=== PATIENT | male | born 1945 | race Two or more races ===

== ENCOUNTER 2017-06-06 13:45 | Outpatient (RCR) | payer MEDICARE, OTHER ==
--- NOTE | 2017-03-28 12:40 | SPEECH INITIAL EVALUATION ---
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 He was referred for a speech/language evaluation by his physician. He is currently utilizing a low tech AAC device consisting of picture and word combinations to communicate basic wants and needs. LANGUAGE The Quick Assessment of Aphasia was administered with the following results: The patient exhibits perseverative behaviors, especially with counting. His expressive language is severely impaired; receptive language is stronger than his expressive language. Quick Assessment of Aphasia Subtests Raw Scores (1-5 with 5 indicating best performance) Average percent correct for Subtest out of possible 100% Functional Level LISTENING TO LANGUAGE: (6 skills) Follows one step directional commands Follows two step directional commands Points to objects when named Points to body parts when named Points to pictured objects when described -Answers Y/N correctly 4 2 5 3 3 3 66% Ability to perform task is Moderately to Severely Affected GRAPHIC (READING) (4 skills) Matches printed words Matches written words with pictures Reads single words aloud Follows written instruction 5 0 3 1 45% Ability to perform task is Severely affected SPEAKING (6 skills) Describes common objects Names common nouns Completes sentences Imitates words Imitates phrases Gives opposites 0 0 4 5 2 0 37% Ability to perform task is Severely Affected COGNITION The [place] Cognitive Assessment (MoCA) was administered with the following results: -MoCA Total Score (TS): 03/16 = moderate cognitive impairment (MCI) . -Cognitive Domains Demonstrating Deficits: visuospatial, attention, delayed recall, naming -Cognitive Domains Demonstrating Strength: orientation and abstraction SPEECH: Articulation of speech sounds at word, sentence, and conversational level is wnl. VOICE: within functional limits DYSPHAGIA: Patient denies oral, pharyngeal, and esophageal dysphagia symptoms at this time. Spoke with STOPPERER ASSEMBLER working with pt at [facility] who reported pt did not present with dysphagia at their facility. SUMMARY This patient demonstrates moderate to severe expressive language deficits, moderate receptive language deficits, and moderate to severe cognitive deficits. The patients most significant areas of difficulty include all domains of expressive language, and delayed memory. The patient is partially aware of these language deficits and their resulting breakdown of communication. He uses an AAC device consisting of picture and word combinations to communicate basic wants and needs with minimal assistance. These deficits decrease the patients functional communication and cognitive skills for completion of everyday tasks including IADLs. These deficits impact his ability to functionally communicate with friends and family, medical providers and others in the community. RECOMMENDATIONS 1.Speech Therapy: 3x/wk for 12 weeks PROGNOSIS: Good. The patient is motivated and has good family support. PLAN OF CARE Short Term Goals 1.The patient will use phone to functionally communicate with family and emergency services. 2.The patient will use AAC device to participate in reciprocal conversation with familiar communication partners. 3. Pt will match written word with pictures at 9/10 and min assist 4.Pt will repeat short phrases x2 with min assist at 9/10 without speech/ language error 5.Pt will name 10/10 single syllable objects with min assist during confrontation naming tasks. Long-Term Goals 1. The patient will function independently in communicative tasks and IADLs. Thank you for this referral. Please call [phone] Vicenta Livingston M.S., CCC-STOPPERER ASSEMBLER Physician Signature Date MTD
--- NOTE | 2017-04-22 14:46 | SLP PLAN OF CARE ---
SPEECH PATHOLOGY PROGRESS REPORT Physician: Papo Stewart MD Progress Note Date: 04-16-17 Clinician: Vicenta Livingston M.S., CCC-OFFICE CORRESPONDENT Patient: Bryan Thakur : 1945 The patient has been attending ST at [facility] 3x;wk for a total of 10 visits. He She is not driving and is brought to tx by family/friends. Current POC The patient has been working on the following short term goals: 1.The patient will use AAC device to participate in reciprocal conversation with familiar communication partners. -Pt successful using AAC at 95% 2. Pt will match written word with pictures at 9/10 and min assist -Pt matching written word to pictured objects at 58% with min assist for practiced words. 3. Pt will repeat short phrases x2 with min assist at 9/10 without speech/ language error -success at approximately 70%. 4 .Pt will name 10/10 single syllable objects with min assist during confrontation naming tasks. -Perseverative errors reduce success to approx 70% following practice/review. Long-Term Goals 1. The patient will function independently in communicative tasks and IADLs. Goals Met 1.The patient will use phone to functionally communicate with family and emergency services. -the patient uses written instructions provided by ST to assist with calling. He can call his granddaughter and 911 independently. SUMMARY Continue Current POC. The patient is progressing toward ST goals. Increased functional communication is recorded. 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 Perseverative errors occur globally with all modes of communication. Progress is noted including increased frequency and length of none errored phrases. In addition, the patient demonstrates some improvement with self correction of apraxic and perseverative speech. Awareness of errors continues to be high. The patient is very successful using pictured icons for use as functional alternative communication. Therapy will focus on verbal expression, however pt is encouraged to use AAC outside of tx for functional communication RECOMMENDATION Patient would benefit from continued ST 3wj12 to address above POC Thank you for referring this patient to [facility], Speech- Language Pathology. Please call [phone] to contact the OFFICE CORRESPONDENT. Respectfully, Vicenta Livingston M.S., CCC-OFFICE CORRESPONDENT Physician Signature Date MTDD
--- NOTE | 2017-05-20 12:42 | SLP PLAN OF CARE ---
SPEECH PATHOLOGY PROGRESS REPORT Physician: Papo Stewart MD Progress Note Date: 05-13-17 Clinician: Vicenta Livingston M.S., CCC-FILLING SEPARATOR Patient: Bryan Thakur : 1945 The patient attends ST at [facility] 3xwk for a total of 20 visits. Current POC The patient has been working on the following short term goals: 1.The patient will use AAC device to participate in reciprocal conversation with familiar communication partners. -Pt successful using AAC at 95% using picture communication. Tx now focused on initial letter/spelling to communicate indiv. words. 2. Pt will match written word with pictures at 9/10 and min assist -Skill has advanced from 58% at 10th tx to 94% at 20th tx with practiced words. Tx targets have progressed to new non-practiced set with pt accuracy at 60% indep. 3 .Pt will name 10/10 single syllable objects with min assist during confrontation naming tasks. -Skill advanced from 70% following max practice/review at 10th tx to72% initial attempt with new targets tx. . -Perseverative errors reduce success to approx 70% following practice/review. 4. Pt will produced sentences x2 reps following model x2 at 9/10 without speech/language error -Pt currently performing at 75% Long-Term Goals 1. The patient will function independently in communicative tasks and IADLs. GOALS MET 1. Pt will repeat short phrases x2 with min assist at 9/10 without speech/ language error -GOAL MET: Goal targeting skill at higher difficulty level (sentence level) will be added to POC. SUMMARY Continue modified POC as above. The patient is progressing toward ST goals. Increased functional communication is recorded. Apraxic speech with perseveration reduce functional communication however pt has demonstrated significant improvement with targeted skills increaseing overall functional communication in and outside of tx. He is now driving himself to appointments and around town. Education provided as to driving precautions including avoiding peak drive times throughout the day. Pt agrees to avoid driving at these times (8am, 3pm, 5pm, after dark). RECOMMENDATION Patient would benefit from continued ST 3wk12 to address above POC Thank you for referring this patient to [facility], Speech- Language Pathology. Please call [phone] to contact the FILLING SEPARATOR. Respectfully, Vicenta Livingston M.S., CCC-FILLING SEPARATOR Physician Signature Date MTDD
[~2017-06-06 13:45] MED LIST: ASPI-1403 PO; CLIN300C99 PO; HYDR-3503 PO; HYDR12.556; LOSA25TA50; [UNRECOGNIZED DRUG - OTHER]
--- NOTE | 2017-06-19 13:04 | SLP DISCHARGE NOTE ---
SPEECH THERAPY DISCHARGE SUMMARY Discharge from : 06-19-17 Physician: Papo Stewart MD Clinician: Vicenta Livingston M.S., CCC-[employer] COMP[employer]ER Patient: Bryan Thakur : 1945 The patient will be DC'd from at 06-19-16 as he has been admitted to inpatient hospital in [place] d/t [facility] The patient has been attending ST at [facility] 3x/wk at [facility] and funtional communication had improved to approximately 75% to familiar listener using multimodal communication (speech, gesture, written). RECOMMENDATION DC from at this time. The patient is welcome to return to Outpatient Rehab at [facility] in the future if appropriate. Thank you for referring this patient to [facility], Speech- Language Pathology. Please call [phone] to contact the [employer]QU[employer] COMP[employer]ER. Respectfully, Vicenta Livingston M.S., CCC-[employer]QUID FLAVOR COMPOUNDER [facility]
== END 2017-06-06 18:00 | disposition home or self-care (01) ==
LOC: ST 13:45
PROVIDERS: ATTEND Internal Medicine
DX: I63.511 Cerebral infarction due to unspecified occlusion or stenosis of right middle cerebral artery (principal)

== ENCOUNTER 2017-06-16 17:53 | Emergency (ER) | payer MEDICARE, OTHER ==
[~2017-06-16] VITALS: Ht 177.8 cm; Wt 69.4 kg
[2017-06-16 18:21] LABS: PLATELET COUNT, AUTOMATED 157 K/uL (150-450)
--- NOTE | 2017-06-16 18:24 | ER Report ---
History and Physical Time Seen By MD: 18:17 HPI/ROS CHIEF COMPLAINT: Found down, right-sided weakness brought in by EMS as a stroke alert HISTORY OF PRESENT ILLNESS: 72-year-old male who was last seen 24 hours ago was found down at home when family checked on him. He is unknown how long. He's been down. He has complete right-sided flaccidity. Patient likely sustained a stroke. He has a previous history of a stroke or he was flown to [facility] in February of this year. She has blood encrusted teeth. EMS checked a fingerstick glucose of 126. Patient was brought in as a stroke alert and taken immediately to the CAT scanner. He is incontinent of stool and urine. He is undressed and he is covered in numerous bruises from recurrent falls. Stages of the bruises are in various stages. Patient is able to speak. He was undergoing speech therapy noted in the old records. 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 Old records from [facility] will attempt to be obtained. Patient voices no chest pain. He is afebrile. He is mildly hypertensive. Patient unable to tell me what procedures or diagnostic tests were performed at [facility]. Denies any concurrent illness, chest pain, headache or shortness of breath. REVIEW OF SYSTEMS: Constitutional: No fever, no chills. Eyes: No discharge. ENT: No sore throat. Cardiovascular: No chest pain, no palpitations. Respiratory: No cough, no shortness of breath. Gastrointestinal: No abdominal pain, no vomiting. Genitourinary: No hematuria. Musculoskeletal: No back pain. Skin: No rashes. Neurological: No headache. Allergies: Coded Allergies: No Known Drug Allergies (Unverified , 09/05/16) Home Meds Reported Medications Hydrochlorothiazide (HYDROCHLOROTHIAZIDE) 12.5 Mg Capsule 03/12/17 Losartan Potassium (LOSARTAN POTASSIUM) 25 Mg Tablet 03/12/17 Reviewed Nurses Notes: Yes Old Medical Records Reviewed: Yes Hx Smoking: No Exposure to Second Hand Smoke?: No Hx Substance Use Disorder: No Hx Alcohol Use: Yes Constitutional Vital Sign - Last 24 Hours 06/16/17 06/16/17 06/16/17 06/16/17 17:53 18:00 18:05 18:07 Temp 98.2 Pulse ??? 96 Resp 18 B/P (MAP) 164/137 (146) 164/137 159/117 (131) Pulse Ox 98 O2 Delivery Non-Rebreather 06/16/17 06/16/17 06/16/17 06/16/17 18:08 18:23 18:24 18:28 Pulse 98 99 Resp 19 18 B/P (MAP) 148/128 (135) 155/118 (130) Pulse Ox 93 91 06/16/17 06/16/17 06/16/17 06/16/17 18:30 18:38 18:40 18:50 Pulse 102 Resp 27 B/P (MAP) 161/112 (128) 160/121 (134) 165/121 (136) Pulse Ox 92 06/16/17 06/16/17 06/16/17 06/16/17 18:53 19:00 19:08 19:10 Pulse 100 103 Resp 17 14 B/P (MAP) 158/104 (122) 155/112 (126) Pulse Ox 93 92 06/16/17 06/16/17 06/16/17 06/16/17 19:20 19:23 19:30 19:38 Pulse 99 98 Resp 15 14 B/P (MAP) 149/110 (123) 151/107 (122) Pulse Ox 92 91 06/16/17 06/16/17 06/16/17 06/16/17 19:40 19:50 19:55 20:00 Pulse 95 Resp 18 B/P (MAP) 151/107 (122) 153/114 (127) 166/113 (130) Pulse Ox 94 06/16/17 06/16/17 06/16/17 06/16/17 20:10 20:20 20:25 20:30 Pulse 93 96 Resp 13 17 B/P (MAP) 148/120 (129) 170/118 (135) 164/121 (135) Pulse Ox 96 96 06/16/17 06/16/17 06/16/17 06/16/17 20:40 20:50 20:55 21:00 Pulse 99 100 Resp 9 15 B/P (MAP) 175/110 (131) 165/114 (131) 175/121 (139) Pulse Ox 98 90 06/16/17 06/16/17 06/16/17 06/16/17 21:10 21:20 21:25 21:30 Pulse 95 95 Resp 16 15 B/P (MAP) 176/105 (128) 173/102 (125) ???/??? (1665) Pulse Ox 93 95 06/16/17 22:38 O2 Flow Rate 3.0 Physical Exam General Appearance: The patient is alert, has no immediate need for airway protection and no signs of toxicity. Vital signs stable, elevated blood pressure. Pulse ox on nonrebreather 98%. There is no facial droop. Eyes: Pupils equal and round no pallor or injection. ENT, Mouth: Mucous membranes are dry, there is dried crusty blood noted on his teeth. Respiratory: There are no retractions, lungs are clear to auscultation. No wheezing or rails Cardiovascular: Regular rate and rhythm. Gastrointestinal: Abdomen is soft and non tender, no masses, bowel sounds normal. Neurological: Alert and oriented 3, complete right-sided flaccidity. Patient with some dysarthria. He is somewhat hard to understand. He was undergoing speech therapy for aphasia Skin: Warm and dry, no rashes. Musculoskeletal: Neck is supple non tender. No bruits Extremities are nontender, nonswollen and have full range of motion. Diffuse old and new-appearing bruises noted over all body surfaces. DIFFERENTIAL DIAGNOSIS: After history and physical exam differential diagnosis was considered for fall in the elderly including but not limited to intracranial injury, long bone and pelvic bone fracture, spinal injury, and intrathoracic injury. Additionally,weakness including but not limited to electrolyte abnormality, depression, anxiety, CVA, spinal cord abnormality, and infectious causes. Medical Decision Making Data Points Result Diagram: 06/16/17 1812 06/16/17 1812 Laboratory Hematology Test 06/16/17 18:12 06/16/17 18:22 Red Blood Count 5.51 M/uL (4.00-5.60) Mean Corpuscular Volume 93.3 fL (80.0-96.0) Mean Corpuscular Hemoglobin 32.1 pg (26.0-33.0) Mean Corpuscular Hemoglobin Concent 34.4 g/dL (32.0-36.0) Red Cell Distribution Width 13.9 % (11.5-14.5) Mean Platelet Volume 8.3 fL (7.2-11.1) Neutrophils (%) (Auto) 87.4 % (39.4-72.5) Lymphocytes (%) (Auto) 4.6 % (17.6-49.6) Monocytes (%) (Auto) 7.8 % (4.1-12.4) Eosinophils (%) (Auto) 0.0 % (0.4-6.7) Basophils (%) (Auto) 0.2 % (0.3-1.4) Nucleated RBC Relative Count (auto) 0.0 /100WBC Neutrophils # (Auto) 13.4 K/uL (2.0-7.4) Lymphocytes # (Auto) 0.7 K/uL (1.3-3.6) Monocytes # (Auto) 1.2 K/uL (0.3-1.0) Eosinophils # (Auto) 0.0 K/uL (0.0-0.5) Basophils # (Auto) 0.0 K/uL (0.0-0.1) Nucleated RBC Absolute Count (auto) 0.00 K/uL Prothrombin Time 14.4 seconds (12.0-14.4) Prothromb Time International Ratio 1.12 Activated Partial Thromboplast Time 27 seconds (23-35) Sodium Level 140 mmol/L (137-145) Potassium Level 4.3 mmol/L (3.5-5.0) Chloride Level 102 mmol/L (98-107) Carbon Dioxide Level 26 mmol/L (22-30) Blood Urea Nitrogen 12 mg/dl (9-21) Creatinine 0.70 mg/dl (0.66-1.25) Glomerular Filtration Rate Calc > 60.0 Random Glucose 126 mg/dl (75-110) Lactate 3.6 mmol/L (0.7-2.1) Calcium Level 9.3 mg/dl (8.4-10.2) Total Bilirubin 1.8 mg/dl (0.2-1.3) Aspartate Amino Transf (AST/SGOT) 81 U/L (0-35) Alanine Aminotransferase (ALT/SGPT) 46 U/L (0-56) Alkaline Phosphatase 90 U/L (0-126) Total Creatine Kinase 4042 U/L (55-170) Troponin I < 0.012 ng/ml Total Protein 7.6 gm/dl (6.3-8.2) Albumin 4.5 g/dl (3.5-5.0) Urine Color Yellow Urine Clarity Clear Urine pH 5.0 pH (4.8-9.5) Urine Specific [place] 1.019 Urine Protein 30 mg/dL (NEGATIVE) Urine Glucose (UA) 50 mg/dL (NEGATIVE) Urine Ketones 20 mg/dL (NEGATIVE) Urine Blood Large (NEGATIVE) Urine Nitrite Negative (NEGATIVE) Urine Bilirubin Negative (NEGATIVE) Urine Urobilinogen Negative mg/dL (0.2-1.9) Urine Leukocyte Esterase Negative (NEGATIVE) Urine RBC 1 /HPF (0-2/HPF) Urine WBC 1 /HPF (0-5/HPF) Urine Squamous Epithelial Cells None /LPF (NONE-FEW) Urine Bacteria Negative /HPF (NONE-FEW) Urine Mucus None /HPF (NONE-FEW) Chemistry Test 06/16/17 18:12 06/16/17 18:22 White Blood Count 15.4 k/uL (4.5-11.0) Red Blood Count 5.51 M/uL (4.00-5.60) Hemoglobin 17.7 g/dL (14.0-18.0) Hematocrit 51.4 % (42.0-52.0) Mean Corpuscular Volume 93.3 fL (80.0-96.0) Mean Corpuscular Hemoglobin 32.1 pg (26.0-33.0) Mean Corpuscular Hemoglobin Concent 34.4 g/dL (32.0-36.0) Red Cell Distribution Width 13.9 % (11.5-14.5) Platelet Count 157 K/uL (150-450) Mean Platelet Volume 8.3 fL (7.2-11.1) Neutrophils (%) (Auto) 87.4 % (39.4-72.5) Lymphocytes (%) (Auto) 4.6 % (17.6-49.6) Monocytes (%) (Auto) 7.8 % (4.1-12.4) Eosinophils (%) (Auto) 0.0 % (0.4-6.7) Basophils (%) (Auto) 0.2 % (0.3-1.4) Nucleated RBC Relative Count (auto) 0.0 /100WBC Neutrophils # (Auto) 13.4 K/uL (2.0-7.4) Lymphocytes # (Auto) 0.7 K/uL (1.3-3.6) Monocytes # (Auto) 1.2 K/uL (0.3-1.0) Eosinophils # (Auto) 0.0 K/uL (0.0-0.5) Basophils # (Auto) 0.0 K/uL (0.0-0.1) Nucleated RBC Absolute Count (auto) 0.00 K/uL Prothrombin Time 14.4 seconds (12.0-14.4) Prothromb Time International Ratio 1.12 Activated Partial Thromboplast Time 27 seconds (23-35) Glomerular Filtration Rate Calc > 60.0 Lactate 3.6 mmol/L (0.7-2.1) Calcium Level 9.3 mg/dl (8.4-10.2) Total Bilirubin 1.8 mg/dl (0.2-1.3) Aspartate Amino Transf (AST/SGOT) 81 U/L (0-35) Alanine Aminotransferase (ALT/SGPT) 46 U/L (0-56) Alkaline Phosphatase 90 U/L (0-126) Total Creatine Kinase 4042 U/L (55-170) Troponin I < 0.012 ng/ml Total Protein 7.6 gm/dl (6.3-8.2) Albumin 4.5 g/dl (3.5-5.0) Urine Color Yellow Urine Clarity Clear Urine pH 5.0 pH (4.8-9.5) Urine Specific [place] 1.019 Urine Protein 30 mg/dL (NEGATIVE) Urine Glucose (UA) 50 mg/dL (NEGATIVE) Urine Ketones 20 mg/dL (NEGATIVE) Urine Blood Large (NEGATIVE) Urine Nitrite Negative (NEGATIVE) Urine Bilirubin Negative (NEGATIVE) Urine Urobilinogen Negative mg/dL (0.2-1.9) Urine Leukocyte Esterase Negative (NEGATIVE) Urine RBC 1 /HPF (0-2/HPF) Urine WBC 1 /HPF (0-5/HPF) Urine Squamous Epithelial Cells None /LPF (NONE-FEW) Urine Bacteria Negative /HPF (NONE-FEW) Urine Mucus None /HPF (NONE-FEW) Coagulation Test 06/16/17 18:12 Prothrombin Time 14.4 seconds Prothromb Time International Ratio 1.12 Activated Partial Thromboplast Time 27 seconds Urinalysis Test 06/16/17 18:22 Urine Color Yellow Urine Clarity Clear Urine pH 5.0 pH (4.8-9.5) Urine Specific [place] 1.019 Urine Protein 30 mg/dL (NEGATIVE) Urine Glucose (UA) 50 mg/dL (NEGATIVE) Urine Ketones 20 mg/dL (NEGATIVE) Urine Blood Large (NEGATIVE) Urine Nitrite Negative (NEGATIVE) Urine Bilirubin Negative (NEGATIVE) Urine Urobilinogen Negative mg/dL (0.2-1.9) Urine Leukocyte Esterase Negative (NEGATIVE) Urine RBC 1 /HPF (0-2/HPF) Urine WBC 1 /HPF (0-5/HPF) Urine Squamous Epithelial Cells None /LPF (NONE-FEW) Urine Bacteria Negative /HPF (NONE-FEW) Urine Mucus None /HPF (NONE-FEW) Microbiology Microbiology Date/Time Source Procedure Growth Status 06/16/17 19:58 Blood Peripheral Draw Blood Culture - Preliminary NO GROWTH AFTER 1 DAY, REINCUBATED Resulted 06/16/17 18:12 Blood Peripheral Draw Blood Culture - Preliminary NO GROWTH AFTER 1 DAY, REINCUBATED Resulted EKG/Imaging EKG Interpretation 12 lead EKG: Rhythm: Sinus tachycardia [place]: Left axis deviation QRS: normal ST segments: Fused nonspecific ST and T-wave changes,, comparison to previous EKG dated 03/12/17. There are new biphasic inverted T waves waves in the anterior leads of questionable significance Imaging X-ray: Single view portable chest x-ray was obtained. I viewed the images myself on the PACS system. My interpretation of the images is: []. [The radiologist interpretation had no clinically significant variation from this interpretation]. Results: CT scan of the head was obtained. The results of the study are EXAMINATION: CT head without IV contrast HISTORY: Right-sided weakness. TECHNIQUE: Axial CT images of the head were obtained from the vertex to the skull base without IV contrast, with coronal and sagittal 2D reconstructed images. One of the following dose optimization techniques was utilized in the performance of this exam: Automated exposure control; adjustment of the mA and/ or kV according to the patient's size; or use of an iterative reconstruction technique. Specific details can be referenced in the facility's radiology CT exam operational policy. COMPARISON: 03/12/2017. FINDINGS: There is a new moderate-sized region of low attenuation change with loss of bonilla -white differentiation centered along the lateral left frontal lobe, compatible with evolving subacute infarct in the MCA territory. This region measures approximately 5.9 x 3.3 x 3.8 cm (AP x Trans x CC). No evidence of intracranial hemorrhage or mass effect. No other loss of bonilla-white differentiation. No midline shift or extra-axial fluid collections. The basal cisterns are patent. Ventricles are normal in caliber. Mild generalized parenchymal atrophy, with additional patchy low attenuation in the deep white matter, suggesting chronic small vessel ischemic change. Stable small old infarct in the left basal ganglia. Intracranial vascular calcifications with dolichoectasia of the intracranial vasculature. There is fusiform enlargement of the supraclinoid left ICA measuring up to 7 mm. Stable large and partially calcified aneurysm at the left MCA trifurcation, measuring 1.9 x 1.9 cm. The calvarium is intact. The partially visualized paranasal sinuses and mastoid air cells are unopacified. IMPRESSION: 1. Moderate sized evolving subacute left MCA territory infarct centered along the lateral left frontal lobe. No intracranial hemorrhage or mass effect. 3. Dolichoectasia of the intracranial vasculature with stable 1.9 cm peripherally calcified aneurysm at the left MCA trifurcation. 4. No other new intracranial findings. The study was read by the radiologist. I viewed the images myself on the PACS system. 06/16/2017 7:21:[address] Chuy Paiz, radiologist on CT scan noted verbally large left MCA stroke ED Course/Re-evaluation Clinical Indication for ER IV: Hydration, IV Access ED Course Patient was presented to the ER by EMS as a stroke alert. A call was placed for consideration of emergency transport by air ambulance to a stroke center. Unfortunately, due to the weather no helicopters were flying. The fixed wing from [facility] is diverted on another emergency. A cursory exam was performed. Patient with right-sided weakness. The patient was taken directly to the CAT scanner. He had stable vital signs and stable, pulse ox. He return to the emergency department after CAT scan and a stroke assessment was performed. Patient had gross geno-paresis to his right side. Blood pressure was mildly elevated. Diagnostic studies were ordered. 2 peripheral IVs were established. Patient reports he was down since 3 AM. Family checked on him late this evening after not hearing from him all day. EMS brought him in with right- sided hemiparesis. He has a large left MCA stroke noted on CT scan. Patient's diagnostic show these show an elevated CPK of almost 4000. Likely mild rhabdomyolysis from being down for over 12 hours. Patient was soiled with stool and urine. He was cleaned up by nursing staff here. 06/16/2017 8:31:27 pm case was discussed with hospitalist, Dr. Reeves who accepts the patient for transfer to [facility]. Decision to Disposition Date: Jun 16, 2017 Decision to Disposition Time: 19:50 Critical Care Time I spent a total of 90 minutes of critical care time in obtaining history, performing a physical exam, bedside monitoring of interventions, collecting and interpreting tests and discussion with consultants but not including time spent performing procedures. Depart Departure Latest Vital Signs Vital Signs Date Time Temp Pulse Resp B/P (MAP) Pulse Ox O2 Delivery O2 Flow Rate FiO2 06/16/17 22:38 3.0 06/16/17 21:30 ???/??? (1665) 06/16/17 21:25 95 15 95 06/16/17 18:05 98.2 Non-Rebreather Impression: Primary Impression: Left sided cerebral hemisphere cerebrovascular accident (CVA) Additional Impressions: Rhabdomyolysis Hypertension Condition: Improved Disposition: XFER TO [facility] Problem Qualifiers Additional Impressions: Rhabdomyolysis Rhabdomyolysis type: non-traumatic Qualified Codes: M62.82 - Rhabdomyolysis Hypertension Hypertension type: essential hypertension Qualified Codes: I10 - Essential ( primary) hypertension TRISTIN TREJO DO Jun 16, 2017 18:24
[2017-06-16 18:31] LABS: INR 1.12
--- NOTE | 2017-06-16 18:44 | EKG ---
FACILITY: [facility] [place] PATIENT NAME: KOBE SANDERS : [id number] MR: [id number] V: [id number] EXAM DATE: ORDERING PHYSICIAN: TRISTIN TREJO TECHNOLOGIST: EMMANUEL Test Reason : STROKE Blood Pressure : / mmHG Vent. Rate : 108 BPM Atrial Rate : 108 BPM P-R Int : 180 ms QRS Dur : 080 ms QT Int : 328 ms P-R-T Axes : 071 -72 066 degrees QTc Int : 439 ms Sinus tachycardia Left axis deviation Nonspecific ST and T wave abnormality Abnormal ECG When compared with ECG of 12-MAR-2017 09:17, Vent. rate has increased BY 39 BPM Confirmed by SUNDAY QUIROGA ([id number]) on 06/17/2017 12:35:01 AM Referred By: MAYA Confirmed By:SUNDAY QUIROGA
--- NOTE | 2017-06-16 19:27 | RADIOLOGY IMAGING REPORT ---
FACILITY: [facility] [place] PATIENT NAME: Bryan Thakur : 1945 MR: [id number] V: [id number] EXAM DATE: ORDERING PHYSICIAN: TRISTIN TREJO TECHNOLOGIST: Location: [facility] Patient: Bryan Thakur : 1945 Visit/Account:[id number] Date of Sevice: 06/16/2017 EXAMINATION: CT head without IV contrast HISTORY: Right-sided weakness. TECHNIQUE: Axial CT images of the head were obtained from the vertex to the skull base without IV c ontrast, with coronal and sagittal 2D reconstructed images. One of the following dose optimization techniques was utilized in the performance of this exam: Autom ated exposure control; adjustment of the mA and/or kV according to the patient's size; or use of an i terative reconstruction technique. Specific details can be referenced in the facility's radiology C T exam operational policy. COMPARISON: 03/12/2017. FINDINGS: There is a new moderate-sized region of low attenuation change with loss of bonilla-white differentiatio n centered along the lateral left frontal lobe, compatible with evolving subacute infarct in the MCA territory. This region measures approximately 5.9 x 3.3 x 3.8 cm (AP x Trans x CC). No evidence of in tracranial hemorrhage or mass effect. No other loss of bonilla-white differentiation. No midline shift o r extra-axial fluid collections. The basal cisterns are patent. Ventricles are normal in caliber. Mild generalized parenchymal atrophy, with additional patchy low attenuation in the deep white matter , suggesting chronic small vessel ischemic change. Stable small old infarct in the left basal ganglia . Intracranial vascular calcifications with dolichoectasia of the intracranial vasculature. There is fu siform enlargement of the supraclinoid left ICA measuring up to 7 mm. Stable large and partially calc ified aneurysm at the left MCA trifurcation, measuring 1.9 x 1.9 cm. The calvarium is intact. The partially visualized paranasal sinuses and mastoid air cells are unopaci fied. IMPRESSION: 1. Moderate sized evolving subacute left MCA territory infarct centered along the lateral left fronta l lobe. No intracranial hemorrhage or mass effect. 3. Dolichoectasia of the intracranial vasculature with stable 1.9 cm peripherally calcified aneurysm at the left MCA trifurcation. 4. No other new intracranial findings. Findings were discussed with TRISTIN TREJO at 06/16/2017 7:23 PM. Report Dictated By: Chuy Paiz MD at 06/16/2017 7:05 PM Report E-Signed By: Chuy Paiz MD at 06/16/2017 7:23 PM WSN:[id number]
--- NOTE | 2017-06-16 19:28 | RADIOLOGY IMAGING REPORT ---
FACILITY: [facility] PATIENT NAME: Bryan Thakur : 1945 MR: [id number] V: [id number] EXAM DATE: ORDERING PHYSICIAN: TRISTIN TREJO TECHNOLOGIST: Location: [facility] [place] Patient: Bryan Thakur : 1945 Visit/Account:[id number] Date of Sevice: 06/16/2017 EXAMINATION: Portable AP Chest HISTORY: Right-sided weakness. COMPARISON: None. FINDINGS: Mild chronic appearing interstitial changes bilaterally, with several strands of scarring or linear a telectasis in the lower lungs. No focal consolidation or pleural effusion. No pneumothorax. Normal heart size and pulmonary vascularity. Calcified and tortuous thoracic aorta. No acute osseous findings in the chest. IMPRESSION: No evidence of acute cardiopulmonary disease. Report Dictated By: Chuy Paiz MD at 06/16/2017 7:23 PM Report E-Signed By: Chuy Paiz MD at 06/16/2017 7:24 PM WSN:[id number]
[2017-06-16] MEDS ORDERED: LR(*) 1000 ML BAG 1,000 ML IV PRN (19:35)
== END 2017-06-16 21:53 ==
LOC: ER 17:54
DX: I63.9 Cerebral infarction, unspecified (principal); M62.82 Rhabdomyolysis; I10 Essential (primary) hypertension
CPT/HCPCS: 70450; 71010; 81001; 82040; 82247; 82310; 82374; 82435; 82550; 82565; 82947; 83605; 83874; 84075; 84132; 84155; 84295; 84450; 84460; 84484; 84520; 85025; 85610; 85730; 87040; 93005; 99285; 99291; 99292

== ENCOUNTER → 2017-06-16 | Outpatient (CLI) | payer MEDICARE, OTHER | LOC: AMB 17:27 | PROVIDERS: ATTEND Nurse Practitioner | DX: R53.1 Weakness (principal); R29.810 Facial weakness; Z86.73 Personal history of transient ischemic attack (TIA), and cerebral infarction without residual deficits | CPT/HCPCS: A0425; A0427 ==

== ENCOUNTER → 2017-06-16 | Outpatient (CLI) | payer MEDICARE, OTHER | LOC: AMB 21:21 | PROVIDERS: ATTEND Nurse Practitioner | DX: I63.9 Cerebral infarction, unspecified (principal); I10 Essential (primary) hypertension | CPT/HCPCS: A0425; A0426 ==

== ENCOUNTER 2017-10-20 14:53 | Emergency (ER) | payer MEDICARE, OTHER ==
--- NOTE | 2017-10-20 14:57 | ER Report ---
History and Physical Time Seen By MD: 14:57 HPI/ROS CHIEF COMPLAINT: I NEED OXYGEN HISTORY OF PRESENT ILLNESS: Pt states that he has copd and is on 4 liters of oxygen with exerton an 2 liters at rest chronically. Pt had a stroke and was admitted to [facility] for rehab. when in rehab his home oxygen was stopped. Pt now discharged to home but without his oxygen. Pt came to ed looking to restart his oxygen. No cp. no new symptoms. Pt states his initial oxygen was with [facility] but was changed by the [place] to [facility] oxygen. REVIEW OF SYSTEMS: GEN: no fevers Respiratory: No cough, no dyspnea. Cardiovascular: No chest pain, no palpitations. Gastrointestinal: No vomiting, no abdominal pain. Musculoskeletal: No back pain. Allergies: Coded Allergies: No Known Drug Allergies (Unverified , 09/05/16) Home Meds Reported Medications Hydrochlorothiazide (HYDROCHLOROTHIAZIDE) 12.5 Mg Capsule 03/12/17 Losartan Potassium (LOSARTAN POTASSIUM) 25 Mg Tablet 03/12/17 Past Medical/Surgical History pmhx: copd, cva Pshx: non contrib Reviewed Nurses Notes: Yes Old Medical Records Reviewed: Yes Hx Smoking: No Smoking Status: Former Smoker Exposure to Second Hand Smoke?: No Hx Substance Use Disorder: No Hx Alcohol Use: Yes Constitutional Vital Sign - Last 24 Hours 10/20/17 10/20/17 10/20/17 10/20/17 14:57 14:57 14:58 15:00 Temp 97.5 Pulse 92 Resp 16 B/P (MAP) 139/106 139/106 (117) 120/109 (113) Pulse Ox 86 O2 Delivery Room Air O2 Flow Rate 2.0 10/20/17 10/20/17 10/20/17 10/20/17 15:08 15:15 15:23 15:30 Pulse 85 84 B/P (MAP) 117/95 (102) 131/107 (115) Pulse Ox 93 92 10/20/17 15:31 Pulse 82 Pulse Ox 93 Physical Exam General Appearance: The patient is alert, has no immediate need for airway protection and no signs of toxicity. Eyes: Pupils equal and round no pallor or injection, EOMI ENT: no pharyngeal erythema or exudates, Mucous membranes are moist Respiratory: There are no retractions, lungs are clear to auscultation. Cardiovascular: Regular rate and rhythm. pulses are equal and symmetrical Gastrointestinal: Abdomen is soft and non tender, no masses, bowel sounds normal, no guarding, no rigidity or rebound Neurological: Cranial nerves II-XII grossly intact, with r sided weakness Skin: Warm and dry, no rashes. Musculoskeletal: Neck is supple non tender, no vertebral tenderness Extremities are nontender, non swollen Pt with chronic r sided weakness DIFFERENTIAL DIAGNOSIS: After history and physical exam differential diagnosis was considered for chronic copd Medical Decision Making ED Course/Re-evaluation ED Course filled paperwork out for home oxygen. PTs pulse ox on room air for me at rest was 84%. 10/20/2017 3:50:23 pm Home and portable oxygen arrived for patient. will d/c Decision to Disposition Date: October 20, 2017 Decision to Disposition Time: 15:50 Depart Departure Latest Vital Signs Vital Signs Date Time Temp Pulse Resp B/P (MAP) Pulse Ox O2 Delivery O2 Flow Rate FiO2 10/20/17 15:31 82 93 10/20/17 15:30 131/107 (115) 10/20/17 14:57 2.0 10/20/17 14:57 97.5 16 Room Air Impression: Primary Impression: COPD (chronic obstructive pulmonary disease) Additional Impression: Oxygen dependent Condition: Improved Disposition: HOME OR SELF-CARE Departure Forms: ER Transition Record, Home Oxygen, Nebulizer RX, Home Oxygen Company Chosen by Patient: [facility] Home Oxygen Durable Medical Equipment-Oxygen: Oxygen Concentrator, Portable Oxygen Gas Reason for Use/Diagnosis: COPD Start Date of the Order: October 20, 2017 Dosage or Concentration (if applicable) - LPM: 4 Route of Administration (if applicable): Nasal Cannula Frequency of Use: Continuous Duration Home O2 Required: 99 Duration Units: Days Room Air Oxygen Saturation: 84 ER Prescribing Physician's Name: Yaneli Dumont NPI Numbers for Local ER MDs: Berna [id number] Medications Reconciliation, Patient Portal Information Patient Instructions: COPD (Chronic Obstructive Pulmonary Disease) (ED) Additional Instructions: Continue with your current medication and oxygen regimen. Follow up with your family doctor Problem Qualifiers Primary Impression: COPD (chronic obstructive pulmonary disease) COPD type: unspecified COPD Qualified Codes: J44.9 - Chronic obstructive pulmonary disease, unspecified YANELI DUMONT DO October 20, 2017 14:57
[2017-10-20 15:45] VITALS: BP 134/99
== END 2017-10-20 15:53 | disposition home or self-care (01) ==
LOC: ER 15:36
DX: J44.9 Chronic obstructive pulmonary disease, unspecified (principal); Z99.81 Dependence on supplemental oxygen
CPT/HCPCS: 99284

== ENCOUNTER 2018-03-06 06:00 | Outpatient (RCR) | payer MEDICARE, OTHER ==
[~2018-03-06 06:00] MED LIST changes: -LOSA25TA50; +LOSA25TA52
--- NOTE | 2018-03-06 15:24 | RADIOLOGY IMAGING REPORT ---
FACILITY: [facility] PATIENT NAME: Bryan Thakur : 1945 MR: [id number] V: [id number] EXAM DATE: ORDERING PHYSICIAN: SUNDAY JAIN TECHNOLOGIST: Location: [facility] Patient: Bryan Thakur : 1945 Visit/Account:[id number] Date of Sevice: 03/06/2018 Examination: MR brain without contrast History: Cerebral infarction Comparison: Head CT 06/16/2017, CT angiogram March 12, 2017 Technique: Multiplane MR imaging was performed through the brain without contrast. Findings: Diffusion: None Ventricles: Normal Midline shift: None Extraaxial fluid: None. 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 Parenchyma: Punctate foci of hemosiderin staining in the bilateral frontal vertex. Additional hemosi olya staining in the right thalamus and right temporal lobe. 2.6 cm ovoid high signal in the left temporal lobe is seen posterior to left MCA region aneurysm. Th ere is low signal on gradient acquisition and hyperintense T1 signal in this finding, sagittal T1 ildefonso ge 16. Mild vasogenic edema versus confluent white matter encephalomalacia in the anterior left temporal lob e adjacent to the MCA aneurysm. Left frontal lobe and basal ganglia unchanged encephalomalacia. Mild to moderate unchanged patchy periventricular white matter high signal and a few small white armen er high signal foci. 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 Orbits and paranasal sinuses: Mild right maxillary sinus mucosal thickening. Impression: 1. 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 2. 2.6 cm parenchymal high signal in the left temporal lobe posterior to the aneurysm exhibits hyper intense T1 signal and low signal on gradient acquisition concerning for a subacute parenchymal hemato ma potentially related to the adjacent MCA aneurysm. This could alternatively represent the residua of prior hemorrhagic infarct. Recommend noncontrast head CT for further characterization. 3. Mild to moderate chronic small vessel ischemic change. 4. Left MCA distribution unchanged encephalomalacia. Report Dictated By: Tyrone Vyas MD at 03/06/2018 3:09 PM Report E-Signed By: Tyrone Vyas MD at 03/06/2018 3:20 PM WSN:[id number]
[2018-03-07] MEDS ORDERED: IOPAMIDOL 76% 75 ML INFUS BTL 75 ML ONE (12:38)
--- NOTE | 2018-03-07 16:02 | RADIOLOGY IMAGING REPORT ---
FACILITY: [facility] PATIENT NAME: Bryan Thakur : 1945 MR: [id number] V: [id number] EXAM DATE: ORDERING PHYSICIAN: SUNDAY JAIN TECHNOLOGIST: Location: [facility] Patient: Bryan Thakur : 1945 Visit/Account:[id number] Date of Sevice: 03/07/2018 EXAMINATION: CT Head without intravenous contrast CTA Neck with intravenous contrast CTA Head with intravenous contrast HISTORY: Aneurysm. TECHNIQUE: Axial noncontrast images are taken from the skull base through the vertex. Sagittal and coronal reformatted images are also submitted. Overlapping thin sections were obtained during a kelin us of IV contrast from the aortic arch through the vertex. Reconstruction of the source data set incl udes multiplanar 2D in the sagittal and coronal planes, and 3D coronal thin slab MIP series. Represen tative images have been stored on PACS. Stenosis of the internal carotid arteries are calculated usi ng NASCET criteria. One of the following dose optimization techniques was utilized in the performance of this exam: Autom ated exposure control; adjustment of the mA and/or kV according to the patient's size; or use of an i terative reconstruction technique. Specific details can be referenced in the facility's radiology C T exam operational policy. CONTRAST: 75 mL of IV Isovue-370 COMPARISON: Brain MRI dated 03/06/2018. FINDINGS: CT HEAD: Brain volume: Mild generalized volume loss. Ventricles: Negative. Acute ischemic changes: None. Hemorrhage: 2.3 x 1.8 x 1.1 cm subcutaneous hematoma in the left temporal lobe immediately posterior to the left MCA aneurysm. The aneurysm is slightly increased in size measuring 3.0 x 2.1 x 1.9 cm, previously 2.7 x 2.1 x 1.9 cm. No subarachnoid hemorrhage. Masses / edema: Mild edema surrounding the left temporal lobe hematoma. Valle-white: Encephalomalacia/gliosis in the left lateral frontal lobe, insula, and bilateral basal ga nglia. White matter: Stable mild chronic microvascular ischemic changes. Vessels: Dolichoectasia of the intracranial arteries. Left MCA bifurcation aneurysm. Scattered mati cified plaque. Normal density in the dural venous sinuses. Extra-axial: Negative. Calvarium / scalp: Negative. Skull base / visualized face: Negative. Visualized sinuses / orbits: Leftward nasal septal deviation. Moderate mucosal thickening in the ri ght maxillary sinus with periapical lucency surrounding the root of the posterior right maxillary mol ar and mild periapical lucency surrounding the right premolar roots. CTA: Aortic arch and great vessels: Negative. Right CCA / ICA: Negative. Left CCA / ICA: Mild calcified plaque at the origin of the internal carotid artery with no signific ant stenosis. Vertebro-basilar: The right vertebral artery is dominant. Otherwise negative. [place] of Yates: Hypoplastic right A1 segment. RUBY circulation: Negative. MCA circulation: Slightly increased size of the left MCA bifurcation aneurysm measuring 3.0 x 2.1 x 1.9 cm, previously 2.7 x 2.1 x 1.9 cm. Small amount of subacute hemorrhage in the adjacent left ant erior temporal lobe. The aneurysm does not fill with contrast, however this may be secondary to slow flow. RETAIL BANKING MANAGER circulation: Negative. Additional non-angiographic findings: Multilevel degenerative disc disease in the cervical spine. Emphysema in the upper lungs. IMPRESSION: 1. Slightly increased size of the left MCA bifurcation aneurysm with subacute hemorrhage in the genesis cent left anterior temporal lobe. Mild edema in the left anterior temporal lobe. No subarachnoid he morrhage. The aneurysm does not fill with contrast, however this may be secondary to slow flow. 2. Otherwise no acute intracranial abnormality. 3. Moderate mucosal thickening in the right maxillary sinus with periapical lucency surrounding the root of the posterior right maxillary molar and mild periapical lucency surrounding the right premola r roots. 4. Multilevel degenerative disc disease in the cervical spine. 5. Emphysema in the upper lungs. Results were called to SUNDAY JAIN at 03/07/2018 2:22 PM.Report Dictated By: Theodore Du MD at 03/07/2018 1:52 PM Report E-Signed By: Theodore Du MD at 03/07/2018 2:24 PM WSN:[id number]
--- NOTE | 2018-03-07 16:05 | RADIOLOGY IMAGING REPORT ---
FACILITY: [facility] PATIENT NAME: Bryan Thakur : 1945 MR: [id number] V: [id number] EXAM DATE: ORDERING PHYSICIAN: SUNDAY JAIN TECHNOLOGIST: Location: [facility] Patient: Bryan Thakur : 1945 Visit/Account:[id number] Date of Sevice: 03/07/2018 EXAMINATION: CT Head without intravenous contrast CTA Neck with intravenous contrast CTA Head with intravenous contrast HISTORY: Aneurysm. TECHNIQUE: Axial noncontrast images are taken from the skull base through the vertex. Sagittal and coronal reformatted images are also submitted. Overlapping thin sections were obtained during a kelin us of IV contrast from the aortic arch through the vertex. Reconstruction of the source data set incl udes multiplanar 2D in the sagittal and coronal planes, and 3D coronal thin slab MIP series. Represen tative images have been stored on PACS. Stenosis of the internal carotid arteries are calculated usi ng NASCET criteria. One of the following dose optimization techniques was utilized in the performance of this exam: Autom ated exposure control; adjustment of the mA and/or kV according to the patient's size; or use of an i terative reconstruction technique. Specific details can be referenced in the facility's radiology C T exam operational policy. CONTRAST: 75 mL of IV Isovue-370 COMPARISON: Brain MRI dated 03/06/2018. FINDINGS: CT HEAD: Brain volume: Mild generalized volume loss. Ventricles: Negative. Acute ischemic changes: None. Hemorrhage: 2.3 x 1.8 x 1.1 cm subcutaneous hematoma in the left temporal lobe immediately posterior to the left MCA aneurysm. The aneurysm is slightly increased in size measuring 3.0 x 2.1 x 1.9 cm, previously 2.7 x 2.1 x 1.9 cm. No subarachnoid hemorrhage. Masses / edema: Mild edema surrounding the left temporal lobe hematoma. Valle-white: Encephalomalacia/gliosis in the left lateral frontal lobe, insula, and bilateral basal ga nglia. White matter: Stable mild chronic microvascular ischemic changes. Vessels: Dolichoectasia of the intracranial arteries. Left MCA bifurcation aneurysm. Scattered mati cified plaque. Normal density in the dural venous sinuses. Extra-axial: Negative. Calvarium / scalp: Negative. Skull base / visualized face: Negative. Visualized sinuses / orbits: Leftward nasal septal deviation. Moderate mucosal thickening in the ri ght maxillary sinus with periapical lucency surrounding the root of the posterior right maxillary mol ar and mild periapical lucency surrounding the right premolar roots. CTA: Aortic arch and great vessels: Negative. Right CCA / ICA: Negative. Left CCA / ICA: Mild calcified plaque at the origin of the internal carotid artery with no signific ant stenosis. Vertebro-basilar: The right vertebral artery is dominant. Otherwise negative. [place] of Yates: Hypoplastic right A1 segment. RUBY circulation: Negative. MCA circulation: Slightly increased size of the left MCA bifurcation aneurysm measuring 3.0 x 2.1 x 1.9 cm, previously 2.7 x 2.1 x 1.9 cm. Small amount of subacute hemorrhage in the adjacent left ant erior temporal lobe. The aneurysm does not fill with contrast, however this may be secondary to slow flow. MELTING SUPERVISOR circulation: Negative. Additional non-angiographic findings: Multilevel degenerative disc disease in the cervical spine. Emphysema in the upper lungs. IMPRESSION: 1. Slightly increased size of the left MCA bifurcation aneurysm with subacute hemorrhage in the genesis cent left anterior temporal lobe. Mild edema in the left anterior temporal lobe. No subarachnoid he morrhage. The aneurysm does not fill with contrast, however this may be secondary to slow flow. 2. Otherwise no acute intracranial abnormality. 3. Moderate mucosal thickening in the right maxillary sinus with periapical lucency surrounding the root of the posterior right maxillary molar and mild periapical lucency surrounding the right premola r roots. 4. Multilevel degenerative disc disease in the cervical spine. 5. Emphysema in the upper lungs. Results were called to SUNDAY JAIN at 03/07/2018 2:22 PM.Report Dictated By: Theodore Du MD at 03/07/2018 1:52 PM Report E-Signed By: Theodore Du MD at 03/07/2018 2:24 PM WSN:[id number]
--- NOTE | 2018-03-07 16:06 | RADIOLOGY IMAGING REPORT ---
[place]AC[place] [facility] [place] NAME: Bryan Thakur : 1945 MR: [id number] V: [id number] EXAM DATE: ORDERING PHYSICIAN: SUNDAY JAIN TECHNOLOGIST: Location: Patient: Bryan Thakur : 1945 Visit/Account:[id number] Date of Sevice: 03/07/2018 EXAMINATION: CT Head without intravenous contrast CTA Neck with intravenous contrast CTA Head with intravenous contrast HISTORY: Aneurysm. TECHNIQUE: Axial noncontrast images are taken from the skull base through the vertex. Sagittal and coronal reformatted images are also submitted. Overlapping thin sections were obtained during a kelin us of IV contrast from the aortic arch through the vertex. Reconstruction of the source data set incl udes multiplanar 2D in the sagittal and coronal planes, and 3D coronal thin slab MIP series. Represen tative images have been stored on PACS. Stenosis of the internal carotid arteries are calculated usi ng NASCET criteria. One of the following dose optimization techniques was utilized in the performance of this exam: Autom ated exposure control; adjustment of the mA and/or kV according to the patient's size; or use of an i terative reconstruction technique. Specific details can be referenced in the facility's radiology C T exam operational policy. CONTRAST: 75 mL of IV Isovue-370 COMPARISON: Brain MRI dated 03/06/2018. FINDINGS: CT HEAD: Brain volume: Mild generalized volume loss. Ventricles: Negative. Acute ischemic changes: None. Hemorrhage: 2.3 x 1.8 x 1.1 cm subcutaneous hematoma in the left temporal lobe immediately posterior to the left MCA aneurysm. The aneurysm is slightly increased in size measuring 3.0 x 2.1 x 1.9 cm, previously 2.7 x 2.1 x 1.9 cm. No subarachnoid hemorrhage. Masses / edema: Mild edema surrounding the left temporal lobe hematoma. Valle-white: Encephalomalacia/gliosis in the left lateral frontal lobe, insula, and bilateral basal ga nglia. White matter: Stable mild chronic microvascular ischemic changes. Vessels: Dolichoectasia of the intracranial arteries. Left MCA bifurcation aneurysm. Scattered mati cified plaque. Normal density in the dural venous sinuses. Extra-axial: Negative. Calvarium / scalp: Negative. Skull base / visualized face: Negative. Visualized sinuses / orbits: Leftward nasal septal deviation. Moderate mucosal thickening in the ri ght maxillary sinus with periapical lucency surrounding the root of the posterior right maxillary mol ar and mild periapical lucency surrounding the right premolar roots. CTA: Aortic arch and great vessels: Negative. Right CCA / ICA: Negative. Left CCA / ICA: Mild calcified plaque at the origin of the internal carotid artery with no signific ant stenosis. Vertebro-basilar: The right vertebral artery is dominant. Otherwise negative. [place] of Yates: Hypoplastic right A1 segment. RUBY circulation: Negative. MCA circulation: Slightly increased size of the left MCA bifurcation aneurysm measuring 3.0 x 2.1 x 1.9 cm, previously 2.7 x 2.1 x 1.9 cm. Small amount of subacute hemorrhage in the adjacent left ant erior temporal lobe. The aneurysm does not fill with contrast, however this may be secondary to slow flow. ANESTHESIOLOGY PHYSICIAN ASSISTANT circulation: Negative. Additional non-angiographic findings: Multilevel degenerative disc disease in the cervical spine. Emphysema in the upper lungs. IMPRESSION: 1. Slightly increased size of the left MCA bifurcation aneurysm with subacute hemorrhage in the genesis cent left anterior temporal lobe. Mild edema in the left anterior temporal lobe. No subarachnoid he morrhage. The aneurysm does not fill with contrast, however this may be secondary to slow flow. 2. Otherwise no acute intracranial abnormality. 3. Moderate mucosal thickening in the right maxillary sinus with periapical lucency surrounding the root of the posterior right maxillary molar and mild periapical lucency surrounding the right premola r roots. 4. Multilevel degenerative disc disease in the cervical spine. 5. Emphysema in the upper lungs. Results were called to SUNDAY JAIN at 03/07/2018 2:22 PM.Report Dictated By: Theodore Du MD at 03/07/2018 1:52 PM Report E-Signed By: Theodore Du MD at 03/07/2018 2:24 PM WSN:[id number]
== END 2018-03-07 18:00 | disposition home or self-care (01) ==
LOC: MRI 06:00 → EDSTATUS 11:50 → MRI 03-07 18:00
PROVIDERS: ATTEND Family Medicine
DX: I60.12 Nontraumatic subarachnoid hemorrhage from left middle cerebral artery (principal); G93.89 Other specified disorders of brain; J43.9 Emphysema, unspecified
CPT/HCPCS: 36415; 70450; 70496; 70498; 70551; 82565; Q9967

== ENCOUNTER → 2018-05-29 | Outpatient (RCR) | payer MEDICARE, OTHER ==
--- NOTE | 2018-03-03 15:34 | OT PLAN OF CARE ---
PROGRESS NOTE SUBJECTIVE: Bryan is a 72 year old right hand dominant male initiating outpatient OT (11/28/17) s/p left CVA late May 2017. Bryan reports continued increased use of right upper extremity and hand for ADLs/IADLs. Previous Medical History: Please refer to EMR Current Limitations: Decreased strength, Decreased ROM, Decreased function, Decreased ADLs Home Environment: Pt resides with ex- and has no concerns with current home set-up. OBJECTIVE: Pt is right hand dominate. Pt reports continued improvement with use of R UE compared to initial evaluation (11/28/17). ROM: Pt compensating for all shoulder AROM measurements Right Left Shoulder Flexion 100deg with pain WFL Shoulder Extension WFL WFL Shoulder Abduction 80deg with pain WFL Elbow Flexion WFL WFL Wrist Extension Moderately limited/pain present WFL Significant ROM limitations with right shoulder flexion/abduction, ER, wrist extension, supination/pronation. Pt demonstrates improvements at rest with decreased wrist flexion, increased neutral position and digit extension compared to recent progress note [facility]. Initially, pt presented with trace function, he is demonstrating increased function with right hand/UE. 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 Sensation: Pt denies sensation impairments Special Test: At recent progress note, pt able to grasp, squeeze, and place x15 clothespins in 4 minutes. Currently, pt able to grasp, squeeze and place x15 clothespins in 2 minutes 34 seconds. Pt demonstrates improved pincer grasp and in hand-manipulation indicated by ability to place coins in slots x15 in 1 minute 42 seconds with 3 errors. At initial evaluation, pt was unable to complete 9-hole peg test with right hand. Currently, pt able to complete 9-hole peg test in 1 minute and 32 seconds. Completed with left hand in 29 seconds. ASSESSMENT Bryan demonstrates improved function with R UE/hand including improved functional resting position, improved FM coordination and dexterity. He will continue to benefit from skilled OT services to improve dexterity and strength for independence with ADLs and IADLs. [facility] to be donned at night. Short Term Goals-Pt progressing well towards goals. 1. Patient will tolerate completing 9-hole peg test to improve fine motor control for ADLs. GOAL MET. NEW GOAL: Pt will improve 9-hole peg test time by 15 seconds in order to improve FM control for ADls. 2. Patient will improve right UE AROM to improve functional ability for self- cares. Progressing towards. 3. Patient will be educated on appropriate compensatory strategies to improve independence with ADLs/IADLs. Progressing towards. 4. Patient will complete strengthening HEP without assistance. Progressing towards. PLAN: 2x/week x2 weeks, 1x/week x4 weeks Thank you for this referral. If you have any questions, concerns, or comments about this report or plan, please contact me at [phone]. Sarah Brady MS, OTR/L Occupational Therapist SHARYN
--- NOTE | 2018-03-04 12:39 | SLP Assessment ---
SPEECH PATHOLOGY PROGRESS REPORT Reassessment Patient Name: Bryan Thakur Patient : 1945 Physician: Frederick Duran MD Clinician: Vicenta Livingston M.S., CCC-DOOR LINER Treatment Dx: Moderately Severe Aphasia with Apraxia Date of Report: 02-28-18 The patient attends tx regularly 3x/wk. His is not driving. He lives with his ex- who brings him to therapy , assists with ADLs and IADLs . He is consistent with wearing oxygen, as well as using cane or walker during ambulation. The patient's POC has been updated to reflect his skills and rehab potential Updated POC 1. Pt will perform tasks related to time and planning with 90% accuracy using external supports and mod assist. Progressing: Pt demonstrates progress with analog and digital time telling independence. He is counting minutes by 5s and 15 with increase indep to use time telling strategies for functional everyday IADLs. 2. Pt will perform tasks of functional verbal expression with min assist and 90% accuracy. Progressing: Pt currently requires max assist to achieve approx 80% accuracy 3. Pt will respond to yes/no questions at 90% to increase receptive language skills for functional communication and IADLs Progressing: Pt currently performing at 80% with mod assist. Verbal response often contradicts selection via pointing. Verbal contradiction occurs d/t to high frequency of perseverative errors. SUMMARY The pts STGs were updated to better reflect the patients skills and rehab potential. He is progressing with functional expressive language, however apraxic/perseverative speech as well as decreased auditory comprehension limit independence. POC updated to reflect this. RECOMMENDATION Patient would benefit from continued ST to address above POC Thank you for referring this patient to [facility], Speech- Language Pathology. Please call [phone] to contact the DOOR LINER. Respectfully, Vicenta Livingston M.S., CCC-DOOR LINER Physician Signature Date MTDD
--- NOTE | 2018-03-05 18:01 | PT PLAN OF CARE ---
Physician: Frederick Duran MD Patient is being seen: 3x/Week Therapist: Josselin Monte, PT, DPT, CLT Medical Diagnosis: Post CVA Treatment Diagnosis: L Side CVA, Generalized Weakness, Abnormality of Gait Date of Onset: 06/14/17 Date of Initial Evaluation: 11/28/17 Date patient was last seen: 03/05/18 Number of treatments: 24 Number of cancellations/No shows: 1 INTERVENTIONS: Manual Therapy/STM/MET Strengthening/condition Ice/Heat Range of Motion Spinal Stabilization Ultrasound Stretching Iontophoresis Neuromuscular Re-ed Closed Chain Program Electrical Stim Posture/Body mechanics Gait Trg/Balance Trg Biofeedback Home Exercise Program Mech./Manual Traction Therapeutic Activities Pelvic Floor GOALS: In 3 weeks pt will improve SIS coupled score of sections 1, 5 and 6 to > 70/115 for improved function with ADL's. MET In 6 weeks pt will improve R LE strength to >4/5 for improved function with ADL's and functional mobility. MET In 6 weeks pt will improve R UE strength to >3/5 for improved function with ADL's. MET In 6 weeks pt will improve SIS coupled score of sections 1, 5 and 6 to > 93/115 for improved function with ADL's. PATIENT'S GOAL: Improve functional mobility and strength Status of Patient's Goals: 2/4 MET, 2/4 In progress Patient Compliance: Fair Prognosis: Good Reasons for continuing therapy: Bryan shows improved strength of the LE and UE upon each visit with increased tolerance of resistance as well as improved functional use. Pt no longer is having R shoulder subluxation. However, humeral placement is generally anterior and inferior, but without pain. Pt shows good progress with gait training with PT focus on transition away from AFO for increased normalization of foot mechanics with associated strengthening of ankle joint. Further PT is indicated for this patient to continue progression towards independence with ADL's and community mobility. Posture: Pt presents with B rounded forward shoulders with R shoulder with anterior and inferior displacement. ROM: UE AROM: Shoulder: Flexion: R 122 with slight pain, L 140, Abd: R 90 with slight pain, L 160, ER: R 50 with pain, L 80, IR: WFL B without pain. Elbow: Flexion: B WFL, Ext: R 0, L 0. Wrist R side only: Ext: 20, Flex: 68, Rad: 15, Uln: 21. Strength: UE MMT: Shoulder: Ext: R 4/5, L 5/5, Flex: R 4/5, L 5/5, Abd: R 3+/5, L 5/5, ER: R 4-/5, L 5/5, IR: R 4/5, L 5/5. Elbow: Flexion: R 3+/5, L 5/5, Ext: R 4/5, L 5/5. LE MMT: Hip: Flexion: R 4/5, L 4+/5, Ext: R 4+/5, L 4+/5, Add: B 5/5, Abd: R 4+/5, L 4+/5. Knee: Ext: R 4+/5, L 5/5, Flex: R 4/5, L 5/5. Ankle: DF: R 4/5, L 5/5, PF R 4/5, L 5/5. Outcome Measure: Stroke Impact Scale (SIS) sections 1, 5, 6 total score: 73/115. If you have any questions or concerns, please feel free to contact me at [phone]. Thank you, Josselin Monte, PT, DPT, CLT MTDHoma
--- NOTE | 2018-03-26 14:52 | SLP PLAN OF CARE ---
SPEECH PATHOLOGY PROGRESS REPORT Patient Name: Bryan Thakur Patient : 1945 Physician: Frederick Duran MD Clinician: Lizzy Brady M.S., [facility]-HANDLE MACHINE OPERATOR Treatment Dx: Moderately Severe Aphasia with Apraxia Date of Report: 03/26/18 The patient attends tx regularly 3x/wk. He lives with his ex- who brings him to therapy , assists with ADLs, IADLs, and driving. He is consistent with wearing oxygen, as well as using cane or walker during ambulation. The patient's plan of care (POC) was updated during his most recent progress reporting period on 02/28/18 to better reflect his skills and rehab potential. The patient has been progressing well with interventions. POC: 1. Pt will respond to yes/no questions at 90% to increase receptive language skills for functional communication and IADLs. Progressing: Pt currently performing at 70% with min assist, increasing to 90% with mod cues. Verbal response continues to frequently contradict selection via pointing. Verbal contradiction occurs d/t to high frequency of perseverative errors. Pt also experiences increased difficulty when presented with Y/N questions that encompass comparison words (e.g., taller, worse, younger, easier, etc). 2. Pt will perform tasks related to time and planning with 90% accuracy using external supports and mod assist. Progressing: Pt demonstrates progress with analog and digital time telling independence. He is demonstrating heightened temporal awareness via completion of functional time telling tasks related to his daily schedule. Time and planning tasks are completed with 70% accuracy with mod assist. 3. Pt will perform tasks of functional verbal expression with min assist and 90% accuracy. Progressing: Pt has responded well to the Treatment of Aphasic Perseverations to improve functional verbal expression. Pt is producing 4-5 word sentences with 80% accuracy when provided with complete model and following 5 sec delay. SUMMARY The pt is progressing with functional expressive language. He has responded well to treatment approaches targeting verbal perseverations with widespread gains across communicative domains. The pt should continue to make great progress with his current plan of care. RECOMMENDATION Patient would benefit from continued ST 3wk1 to address above POC Thank you for referring this patient to [facility] [place], Speech- Language Pathology. Please call [phone] to contact the HANDLE MACHINE OPERATOR. Respectfully, Lizzy Brady, M.S., CCC-HANDLE MACHINE OPERATOR Physician Signature Date [*] MTDD
--- NOTE | 2018-03-28 15:12 | PT PLAN OF CARE ---
Physician: Frederick Duran MD Patient is being seen: 3x/Week Therapist: Josselin Monte, PT, DPT, CLT Medical Diagnosis: Post CVA Treatment Diagnosis: L Side CVA, Generalized Weakness, Abnormality of Gait Date of Onset: 06/14/17 Date of Initial Evaluation: 11/28/17 Date patient was last seen: 03/28/18 Number of treatments: 47 Number of cancellations/No shows: 2 INTERVENTIONS: Manual Therapy/STM/MET Strengthening/condition Ice/Heat Range of Motion Spinal Stabilization Ultrasound Stretching Iontophoresis Neuromuscular Re-ed Closed Chain Program Electrical Stim Posture/Body mechanics Gait Trg/Balance Trg Biofeedback Home Exercise Program Mech./Manual Traction Therapeutic Activities Pelvic Floor GOALS: In 3 weeks pt will improve SIS coupled score of sections 1, 5 and 6 to > 70/115 for improved function with ADL's. MET In 6 weeks pt will improve R LE strength to >4/5 for improved function with ADL's and functional mobility. MET In 6 weeks pt will improve R UE strength to >3/5 for improved function with ADL's. MET In 6 weeks pt will improve SIS coupled score of sections 1, 5 and 6 to > 93/115 for improved function with ADL's. PATIENT'S GOAL: Improve functional mobility and strength Status of Patient's Goals: 3/4 MET, 1/4 In progress Patient Compliance: Fair Prognosis: Good Reasons for continuing therapy: Bryan shows excellent progression with gait and mobility. With improved endurance pt is able to walk 1/2 lap without use of AD, PT CGA, prior to need for standing rest breaks and is able to tolerate 3 laps total of ambulation prior to need for seated rest break. Pt UE strength shows significant improvements with decreased shoulder pain and improved stability. ROM remains constant in the shoulder but shows gains in the wrist. Pt started on exercises involving increased coordination and advanced ambulation such as stair mobility. Pt is able to ambulate up and down 6" steps with good control, but remains quick to fatigue. No progress has been made towards progressing towards portable oxygen concentrator continuing to limit pt independence. Further PT to continue with strength and mobility goals as well as improve endurance and coordination to return to prior level of independent function. Posture: Pt presents with B rounded forward shoulders with R shoulder with anterior and inferior displacement. ROM: UE AROM: Shoulder: Flexion: R 122 with slight pain, L 140, Abd: R 90 with slight pain, L 160, ER: R 50 with pain, L 80, IR: R L5, L T12. Elbow: Flexion: B WFL, Ext: R 0, L 0. Wrist R side only: Ext: 20, Flex: 68, Rad: 15, Uln: 21. Strength: UE MMT: Shoulder: Ext: R 4/5, L 5/5, Flex: R 4/5, L 5/5, Abd: R 3+/5, L 5/5, ER: R 4-/5, L 5/5, IR: R 4/5, L 5/5. Elbow: Flexion: R 3+/5, L 5/5, Ext: R 4/5, L 5/5. LE MMT: Hip: Flexion: R 4+/5, L 5/5, Ext: R 4+/5, L 4+/5, Add: B 5/5, Abd: R 4+/5, L 5/5. Knee: Ext: R 5/5, L 5/5, Flex: R 4/5, L 5/5. Ankle: DF: R 4+/5, L 5/5, PF R 4/5, L 5/5. Outcome Measure: Stroke Impact Scale (SIS) sections 1, 5, 6 total score: 76/115. If you have any questions or concerns, please feel free to contact me at [phone]. Thank you, Josselin Monte, PT, DPT, CLT SHARYN
--- NOTE | 2018-04-09 16:27 | OT ECF NOTE ---
PROGRESS NOTE SUBJECTIVE: Bryan is a 72 year old right hand dominant male initiating outpatient OT (11/28/17) s/p left CVA late May 2017. Bryan reports continued increased use of right upper extremity and hand for ADLs/IADLs. 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 Previous Medical History: Please refer to EMR Current Limitations: Decreased strength, Decreased ROM, Decreased function, Decreased ADLs Home Environment: Pt resides with ex- and has no concerns with current home set-up. OBJECTIVE: Pt is right hand dominate. Pt reports continued improvement with use of R UE compared to initial evaluation (11/28/17). ROM: Right Left Shoulder Flexion 110deg WFL Shoulder Extension WFL WFL Shoulder Abduction 90deg WFL Elbow Flexion WFL WFL Wrist Extension Minimally limited with no pain WFL No reports of pain with MMT or ROM in right UE shoulder Strength: MMT: Right Left Shoulder Flexion 2/5 5/5 Shoulder Extension 3/5 5/5 Shoulder Abduction 2/5 5/5 Elbow Flexion 3/5 5/5 Wrist Extension 2/5 5/5 (5= normal, 4= good, 3= fair, 2= poor, 1= trace) Client Technical Specialist Pt demonstrates improved ability to grasp objects of various sizes and weights with right hand and prolonged holds. Sensation: Pt denies sensation impairments Special Test: Grasp, squeeze and place x10 clothespins 03/03/18: 2 minutes 34 seconds 04/09/18: 1 minute 54 seconds Pincer grasp and in hand-manipulation indicated by ability to place coins in slots x15 03/03/18: 1 minute 42 seconds with 3 errors 04/09/18: 1 minute 35 seconds with no errors 9-hole peg test 03/03/18: 1 minute 32 seconds (right). 29 seconds (left) 04/09/18: 1 minute 15 seconds Lateral Pinch 03/03/18: Unable to tolerate 04/09/18: Right (10#). Left (18#) Unable to tolerate three jaw jarrett or tip pinch this date. ASSESSMENT Bryan demonstrates improved function with right hand FM coordination and dexterity. He will continue to benefit from skilled OT services to improve dexterity and strength for independence with ADLs and IADLs. Short Term Goals-Pt progressing well towards goals. 1. Pt will improve 9-hole peg test time by 15 seconds in order to improve FM control for ADLs. GOAL MET. 2. Patient will improve right UE AROM to improve functional ability for self- cares. Progressing towards. GOAL MET. 3. Patient will be educated on appropriate compensatory strategies to improve independence with ADLs/IADLs. GOAL MET. 4. Patient will complete strengthening HEP without assistance. Progressing towards. 5. Patient will improve digit strength for lateral pinch indicated by 5# improvement with right hand in order to improve strength for feeding/ADLs. NEW GOAL. PLAN: 1x/week x8 weeks Thank you for this referral. If you have any questions, concerns, or comments about this report or plan, please contact me at [phone]. Sarah Brady MS, OTR/L Occupational Therapist SHARYN
--- NOTE | 2018-04-23 15:34 | PT PLAN OF CARE ---
Physician: Frederick Duran MD Patient is being seen: 2-3x/Week Therapist: Josselin Monte, PT, DPT, CLT Medical Diagnosis: Post CVA Treatment Diagnosis: L Side CVA, Generalized Weakness, Abnormality of Gait Date of Onset: 06/14/17 Date of Initial Evaluation: 11/28/17 Date patient was last seen: 04/23/18 Number of treatments: 56 Number of cancellations/No shows: 2 INTERVENTIONS: Manual Therapy/STM/MET Strengthening/condition Ice/Heat Range of Motion Spinal Stabilization Ultrasound Stretching Iontophoresis Neuromuscular Re-ed Closed Chain Program Electrical Stim Posture/Body mechanics Gait Trg/Balance Trg Biofeedback Home Exercise Program Mech./Manual Traction Therapeutic Activities Pelvic Floor GOALS: In 3 weeks pt will improve SIS coupled score of sections 1, 5 and 6 to > 70/115 for improved function with ADL's. MET In 6 weeks pt will improve R LE strength to >4/5 for improved function with ADL's and functional mobility. MET In 6 weeks pt will improve R UE strength to >3/5 for improved function with ADL's. MET In 6 weeks pt will improve SIS coupled score of sections 1, 5 and 6 to > 93/115 for improved function with ADL's. PATIENT'S GOAL: Improve functional mobility and strength Status of Patient's Goals: 3/4 MET, 1/4 In progress Patient Compliance: Fair Prognosis: Good Reasons for continuing therapy: Bryan continues to show improvements with increased function and decreased compensations. UE and LE strength and stability show improvements with increased associated function with ambulation and performance of ADL's. Pt is able to perform light tasks around the house to assist with self care and chores at this time but is slow to do so. Pt gait remains significant for decreased foot clearance on the R LE around 30% of ambulation. However, clearance and mechanics of gait improves with rest and cuing. Pt is now able to ambulate up and down stairs with SBA for safety with a reciprocal gait pattern. Pt remains limited by his oxygen with community ambulation and a portable concentrator would be advised. Further PT is indicated for this patient to improve endurance and coordination with community ambulation and performance of ADL's for increased independence. Posture: Pt presents with B rounded forward shoulders. ROM: UE AROM: Shoulder: Flexion: R 112, L 140, Abd: R 115, L 160, ER: R 50, L 80, IR: R L5, L T12. Elbow: Flexion: B WFL, Ext: R 0, L 0. Wrist R side only: Ext: 20, Flex: 68, Rad: 15, Uln: 21. Strength: UE MMT: Shoulder: Ext: R 5/5, L 5/5, Flex: R 5/5, L 5/5, Abd: R 4-/5, L 5/5, ER: R 4+/5, L 5/5, IR: R 4/5, L 5/5. Elbow: Flexion: R 5/5, L 5/5, Ext: R 4/5, L 5/5. LE MMT: Hip: Flexion: R 5/5, L 5/5, Ext: R 4+/5, L 4+/5, Add: B 5/5, Abd: R 5/5, L 5/5. Knee: Ext: R 5/5, L 5/5, Flex: R 4/5, L 5/5. Ankle: DF: R 5/5, L 5/5, PF R 3+/5, L 5/5. Outcome Measure: Stroke Impact Scale (SIS) sections 1, 5, 6 total score: 82/115. If you have any questions or concerns, please feel free to contact me at [phone]. Thank you, Josselin Monte, PT, DPT, CLT MTDD
--- NOTE | 2018-04-23 16:58 | SLP PLAN OF CARE ---
SPEECH PATHOLOGY PROGRESS REPORT Patient Name: Bryan Thakur Patient : 1945 Physician: Frederick Duran MD Clinician: Lizzy Brady M.S., [facility]-[place] OPERATOR HELPER, Veronica Gaffney [facility] [place], Returning Officer Clinician Treatment Dx: Moderately Severe Aphasia with Apraxia Date of Report: 04/23/18 The patient attends tx regularly 3x/wk. He lives with his ex- who brings him to therapy, assists with ADLs, IADLs, and driving. He is consistent with wearing oxygen, as well as using cane or walker during ambulation. The patient has been progressing well with interventions and has demonstrated great engagement and motivation during recent treatment sessions. POC: 1. Pt will respond to yes/no questions at 90% to increase receptive language skills for functional communication and IADLs. Progressing, will update to more specifically reflect performance: Pt currently performing at 80% accuracy independently, increasing to 90% with mod cues. Contradiction with verbal response vs. pointing selection has decreased. However, pt is still demonstrating these errors and becomes very confused when they occur. Y/N questions complexity has increased in length and content, and the goal will be updated below. Pt has begun answering Y/N questions by reading a 6-7 word sentence independently and then choosing the correct answer based on the content of the sentence. 2. Pt will perform tasks related to time and planning with 90% accuracy using external supports and mod assist. Progressing: Pt demonstrates progress with analog and digital time telling independence. He is demonstrating heightened temporal awareness via completion of functional time telling tasks related to his daily schedule. Time and planning tasks are completed with 86% accuracy with mod graded to min assist. 3. Pt will perform tasks of functional verbal expression with min assist and 90% accuracy. Progressing: Using the Treatment of Aphasic Perseverations (TAP) to improve functional verbal expression, subjective measures of decreased preservation have been noted. Pt is producing 6-7 word sentences with 83% accuracy when provided with complete model and following 5-10 sec delay. UPDATED POC 4. Pt will respond to comparative yes/no questions (e.g., is a fish smaller than a horse) at 90% with min cues to increase receptive language skills for functional communication and IADLs. 5. Pt will perform sentence-level reading tasks to improve comprehension for ADLs with 90% accuracy and mod assist. SUMMARY The pt continues to progress with functional expressive language. He has responded well to treatment approaches targeting verbal perseverations with widespread gains across communicative domains. The Reading Comprehension Battery for Aphasia (RCBA-2) was completed during a dynamic assessment to evaluate the pts reading comprehension skills. The patient demonstrated difficulty with interpreting sentence-level text and oral reading. Deficits with oral reading were d/t preservation errors and will continue to be addressed during Goal 3, using the Treatment of Aphasic Perseverations (TAP) approach. A new goal will be added to the pts POC to target sentence-level reading comprehension for functional reading to support participation in ADLs. The patients level of frustration during treatment has noticeably decreased with heightened levels of motivation. He should continue to make great progress with his current plan of care. RECOMMENDATION Patient would benefit from continued to address the above and updated POC. Thank you for referring this patient to [facility], Speech- Language Pathology. Please call [phone] to contact the [employer] [employer] OPERATOR HELPER. Respectfully, Lizzy Brady M.S., CCC-[employer] [employer] OPERATOR HELPER Veronica Gaffney [facility] [place], Returning Officer Clinician Physician Signature Date [*] [facility]
--- NOTE | 2018-05-21 14:48 | PT PLAN OF CARE ---
Physician: Frederick Duran MD Patient is being seen: 2-3x/wk Therapist: Josselin Monte, PT, DPT, CLT & Cher Johnson, SPT Medical Diagnosis: Post CVA Treatment Diagnosis: L Side CVA, Generalized Weakness, Abnormality of Gait Date of Onset: 06/14/17 Date of Initial Evaluation: 11/28/17 Date patient was last seen: 05/21/18 Number of treatments: 66 Number of cancellations/No shows: 2 INTERVENTIONS: Manual Therapy/STM/MET Strengthening/condition Ice/Heat Range of Motion Spinal Stabilization Ultrasound Stretching Iontophoresis Neuromuscular Re-ed Closed Chain Program Electrical Stim Posture/Body mechanics Gait Trg/Balance Trg Biofeedback Home Exercise Program Mech./Manual Traction Therapeutic Activities Pelvic Floor GOALS: In 3 weeks pt will improve SIS coupled score of sections 1, 5 and 6 to > 70/115 for improved function with ADL's. MET In 6 weeks pt will improve R LE strength to >4/5 for improved function with ADL's and functional mobility. MET In 6 weeks pt will improve R UE strength to >3/5 for improved function with ADL's. MET In 6 weeks pt will improve SIS coupled score of sections 1, 5 and 6 to > 93/115 for improved function with ADL's. PATIENT'S GOAL: Improve functional mobility and strength Status of Patient's Goals: 3/4 MET, 1/4 In progress Patient Compliance: Fair Prognosis: Good Reasons for continuing therapy: Bryan continues to show improvements in B LE & B UE strength. Pt also continues to show improvements in his gait patterns as well as control with eccentric lowering on the stairs. Pt has recently had L knee pain that has caused some regressions in his progress. Following assessment and decreased loading pt shows good recovery of knee pain with minimal restrictions at this time. Physical therapy is still indicated to continue to improve pt's B UE and B LE strength and endurance with activities as well as to improve gait patterns to improve overall function with ADL's. Posture: Pt presents with B rounded forward shoulders. ROM: UE AROM: Shoulder: Flexion: R 112, L 140, Abd: R 115, L 160, ER: R 50, L 80, IR: R L5, L T12. Elbow: Flexion: B WFL, Ext: R 0, L 0. Wrist R side only: Ext: 20, Flex: 68, Rad: 15, Uln: 21. Strength: UE MMT: Shoulder: Ext: R 5/5, L 5/5, Flex: R 5/5, L 5/5, Abd: R 4-/5, L 5/5, ER: R 4+/5, L 5/5, IR: R 4/5, L 5/5. Elbow: Flexion: R 5/5, L 5/5, Ext: R 4/5, L 5/5. LE MMT: Hip: Flexion: R 5/5, L 5/5, Ext: R 4+/5, L 4+/5, Add: B 5/5, Abd: R 5/5, L 5/5. Knee: Ext: R 5/5, L 5/5, Flex: R 4/5, L 5/5. Ankle: DF: R 5/5, L 5/5, PF R 3+/5, L 5/5. Outcome Measure: Stroke Impact Scale (SIS) sections 1, 5, 6 total score: 82/115. If you have any questions or concerns, please feel free to contact me at [phone]. Thank you, Josselin Monte, PT, DPT, CLT Cher Johnson, DERRICK This Physical Therapist was present for the entire physical therapy session directing the services, making the skilled judgement, and was not engaged in treating another patient or doing another task at the same time as the treatment session. SHARYN
--- NOTE | 2018-05-23 12:03 | SLP PLAN OF CARE ---
SPEECH PATHOLOGY PROGRESS REPORT Patient Name: Bryan Thakur Patient : 1945 Physician: Frederick Duran MD Clinician: Vicenta Livingston M.S., [facility]-GLOBAL ENGINEERING MANAGER Treatment Dx: Moderately Severe Aphasia with Apraxia Date of Report: 05/23/18 The patient attends tx regularly 3x/wk. He lives with his ex- who brings him to therapy, assists with ADLs, IADLs, including driving. He is consistent with wearing oxygen. He uses a cane or walker during ambulation intermittently. The patient has been trialing a [employer] Mini Talk speech generating device (SGD). He demonstrates excellent potential for independent function operation of this SGD. He demonstrates approximately 85% independence with operation of the device thus far and accuracy is expected to increase with additional training and experience. In addition, the patient demonstrates excellent potential for use of the device for functional communication. He demonstrates approximately 80% accuracy independently for functional communication in response to direct questions and this accuracy is expected to increase, though will likely be limited somewhat by receptive language deficits. Caregiver training was provided on 05/22 with the patient's ex-, Yumiko. She is motivated to use the device for functional communication with the patient at home and expects use of the device to significantly improve communication between herself and the patient. She is the primary caregiver. She demonstrated learning of device function and use throughout learning and is expected to be independent with the device following training. As per protocol, a second form of assisted communication will be trialed. Selection of 2nd trial device will be based pt performance with current trial. The patient has been progressing well with interventions and has demonstrated great engagement and motivation during recent treatment sessions. MODIFIED POC: 1. Pt will respond to yes/no questions at 90% to increase receptive language skills for functional communication and IADLs. Progressing. 2. Pt will perform tasks related to time and planning with 90% accuracy using external supports and mod assist. Progressing 3. Pt will perform tasks of functional verbal expression with min assist and 90% accuracy. Progressing 4. Pt will participate in SGD trials to ultimately select most functions SGD. Caregiver and pt will receive training for operation and functional use of SGD. New goal as of 05/23/18 RECOMMENDATION *Medical insurance reimbursement for a speech generating device (SGD) requires an order from the pcp. Documentation of the medical necessity of an (SGD) in physician's visit notes is required within 6 months of the SGD order date. Estimated SGD order date: 06/23/18. The patient has been asked to schedule a visit with his physician to address this matter. Patient would benefit from continued to address the above updated POC. Thank you for referring this patient to [facility], Speech- Language Pathology. Please call [phone] to contact the GLOBAL ENGINEERING MANAGER. Respectfully, Vicenta Livingston M.S., [facility]-GLOBAL ENGINEERING MANAGER Physician Signature Date MTDD
--- NOTE | 2018-05-28 16:56 | OT DISCHARGE SUMMARY ---
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 Bryan reports continued increased use of right upper extremity and hand for ADLs/IADLs. He reports no concerns regarding current level of function and no further OT goals to be addressed. Previous Medical History: Please refer to EMR Home Environment: Pt resides with significant other and has no concerns with current home set-up. OBJECTIVE: Pt is right hand dominate. Pt reports continued improvement with use of R UE compared to initial evaluation (11/28/17). ROM: Right Left Shoulder Flexion 110deg WFL Shoulder Extension WFL WFL Shoulder Abduction 90deg WFL Elbow Flexion WFL WFL Wrist Extension Minimally limited with no pain WFL No reports of pain with MMT or ROM in right UE shoulder Strength: MMT: Right Left Shoulder Flexion 2/5 5/5 Shoulder Extension 3/5 5/5 Shoulder Abduction 2/5 5/5 Elbow Flexion 3/5 5/5 Wrist Extension 2/5 5/5 (5= normal, 4= good, 3= fair, 2= poor, 1= trace) [employer] Adf Developer Pt demonstrates improved ability to grasp objects of various sizes and weights with right hand and prolonged holds. Sensation: Pt denies sensation impairments Special Test: Grasp, squeeze and place x10 clothespins 03/03/18: 2 minutes 34 seconds 04/09/18: 1 minute 54 seconds 05/28/18: 1 minute 47 seconds Pincer grasp and in hand-manipulation indicated by ability to place coins in slots x15 03/03/18: 1 minute 42 seconds with 3 errors 04/09/18: 1 minute 35 seconds with no errors 05/28/18: 1 minute 56 seconds with one error 9-hole peg test 03/03/18: 1 minute 32 seconds (right). 29 seconds (left) 04/09/18: 1 minute 15 seconds 05/28/18: 52 seconds Lateral Pinch 03/03/18: Unable to tolerate 04/09/18: Right (10#). Left (18#) 05/28/18: Right (15#) Unable to tolerate three jaw jarrett or tip pinch this date. ASSESSMENT Bryan demonstrates improved function with right hand FM coordination, dexterity, and strength. He has met all skilled OT goals and demonstrates improved functional use of right hand for ADLs. At this time, Bryan reports no further questions or goals to address with OT. Encouraged to follow-up if questions or concern should arise. Pt verbalized understanding and is agreeable with plan going forward. Short Term Goals-Pt progressing well towards goals. 1. Pt will improve 9-hole peg test time by 15 seconds in order to improve FM control for ADLs. GOAL MET. 2. Patient will improve right UE AROM to improve functional ability for self- cares. Progressing towards. GOAL MET. 3. Patient will be educated on appropriate compensatory strategies to improve independence with ADLs/IADLs. GOAL MET. 4. Patient will complete strengthening HEP without assistance. GOAL MET 5. Patient will improve digit strength for lateral pinch indicated by 5# improvement with right hand in order to improve strength for feeding/ADLs. GOAL MET. PLAN: Discharge skilled OT services. Thank you for this referral. If you have any questions, concerns, or comments about this report or plan, please contact me at [phone]. Sarah Brady MS, OTR/L Occupational Therapist SHARYN
[~2018-05-29] MED LIST changes: -LOSA25TA52; +LOSA25TA57
== END ==
LOC: PT 02-28 13:00
PROVIDERS: ATTEND Family Medicine
DX: I69.30 Unspecified sequelae of cerebral infarction (principal); M25.511 Pain in right shoulder; R29.6 Repeated falls; R20.3 Hyperesthesia

== ENCOUNTER 2018-08-25 13:00 | Outpatient (RCR) | payer MEDICARE, OTHER ==
--- NOTE | 2018-06-02 14:17 | PT PLAN OF CARE ---
Physician: Frederick Duran MD Patient is being seen: 3x/Week Therapist: Josselin Monte, PT, DPT, CLT Medical Diagnosis: Post CVA Treatment Diagnosis: L Side CVA, Generalized Weakness, Abnormality of Gait Date of Onset: 06/14/17 Date of Initial Evaluation: 11/28/17 Date patient was last seen: 06/02/18 Number of treatments: 72 Number of cancellations/No shows: 2 INTERVENTIONS: Manual Therapy/STM/MET Strengthening/condition Ice/Heat Range of Motion Spinal Stabilization Ultrasound Stretching Iontophoresis Neuromuscular Re-ed Closed Chain Program Electrical Stim Posture/Body mechanics Gait Trg/Balance Trg Biofeedback Home Exercise Program Mech./Manual Traction Therapeutic Activities Pelvic Floor GOALS: In 3 weeks pt will improve SIS coupled score of sections 1, 5 and 6 to > 70/115 for improved function with ADL's. MET In 6 weeks pt will improve R LE strength to >4/5 for improved function with ADL's and functional mobility. MET In 6 weeks pt will improve R UE strength to >3/5 for improved function with ADL's. MET In 6 weeks pt will improve SIS coupled score of sections 1, 5 and 6 to > 93/115 for improved function with ADL's. PATIENT'S GOAL: Improve functional mobility and strength Status of Patient's Goals: 3/4 MET, 1/4 In progress Patient Compliance: Fair Prognosis: Good Reasons for continuing therapy: Secondary to R knee injury, Bryan has shown decreased stability with weight shift with poor quadriceps activation with loading. However, over the last couple treatment sessions quad activation has improved and pt shows near full regain of previous status. Remaining progress still needs to be made to regain use of R quad for eccentric lowering down stars. Ankle mobility and strength shows significant improvement despite slight increased tone for R ankle inversion. Gait remains to show improvements with improved foot clearance with ambulation and more equal stride length. Further PT is indicated for Bryan to continue progress towards independent functioning with ADL's and mobility without use of AD. Posture: Pt presents with B rounded forward shoulders. ROM: UE AROM: Shoulder: Flexion: R 110, L 130, Abd: R 115, L 160, ER: R 65, L 73, IR: R L5, L T12. Elbow: Flexion: B WFL, Ext: R 0, L 0. Wrist R side only: Ext: 20, Flex: 68, Rad: 15, Uln: 21. Strength: UE MMT: Shoulder: Ext: R 5/5, L 5/5, Flex: R 5/5, L 5/5, Abd: R 4-/5, L 5/5, ER: R 4+/5, L 5/5, IR: R 4/5, L 5/5. Elbow: Flexion: R 5/5, L 5/5, Ext: R 4/5, L 5/5. LE MMT: Hip: Flexion: R 4-/5, L 4/5, Ext: R 4+/5, L 4/5, Add: B 4+/5, Abd: R 4/5, L 4+/5. Knee: Ext: R 4+/5, L 5/5, Flex: R 4/5, L 4+/5. Ankle: DF: R 5-/5, L 5/5, PF R 3+/5, L 5/5. Outcome Measure: Stroke Impact Scale (SIS) sections 1, 5, 6 total score: 82/115. If you have any questions or concerns, please feel free to contact me at [phone]. Thank you, Josselin Monte, PT, DPT, CLT MTDHoma
--- NOTE | 2018-06-26 14:19 | PT PLAN OF CARE ---
Physician: Frederick Duran MD Patient is being seen: 3x/Week Therapist: Josselin Monte, PT, DPT, CLT Medical Diagnosis: Post CVA Treatment Diagnosis: L Side CVA, Generalized Weakness, Abnormality of Gait Date of Onset: 06/14/17 Date of Initial Evaluation: 11/28/17 Date patient was last seen: 06/26/18 Number of treatments: 82 Number of cancellations/No shows: 2 INTERVENTIONS: Manual Therapy/STM/MET Strengthening/condition Ice/Heat Range of Motion Spinal Stabilization Ultrasound Stretching Iontophoresis Neuromuscular Re-ed Closed Chain Program Electrical Stim Posture/Body mechanics Gait Trg/Balance Trg Biofeedback Home Exercise Program Mech./Manual Traction Therapeutic Activities Pelvic Floor GOALS: In 3 weeks pt will improve SIS coupled score of sections 1, 5 and 6 to > 70/115 for improved function with ADL's. MET In 6 weeks pt will improve R LE strength to >4/5 for improved function with ADL's and functional mobility. MET In 6 weeks pt will improve R UE strength to >3/5 for improved function with ADL's. MET In 6 weeks pt will improve SIS coupled score of sections 1, 5 and 6 to > 93/115 for improved function with ADL's. PATIENT'S GOAL: Improve functional mobility and strength Status of Patient's Goals: 3/4 MET, 1/4 In progress Patient Compliance: Fair Prognosis: Good Reasons for continuing therapy: Bryan shows good progression with gait with improved stability and balance as well as endurance. Bryan is starting to show increased tone into R foot inversion which is to be corrected with eversion strengthening and stretching. Pt is to progress away from AFO at this time with gait with continued use of SPC unless imbalance is noted. Bryan has been started on HEP for increased ankle strengthening at home. LE strength remains stable with improved quad activation with weight shift with recent focus. However, pt remains to have difficulty with eccentric lowering from 6-8inch steps. Further PT to continue to focus on gains in strength, stability and endurance as well as correction of changes in tone as they occur. Posture: Pt presents with B rounded forward shoulders. ROM: UE AROM: Shoulder: Flexion: R 110, L 130, Abd: R 115, L 160, ER: R 65, L 73, IR: R L5, L T12. Elbow: Flexion: B WFL, Ext: R 0, L 0. Wrist R side only: Ext: 20, Flex: 68, Rad: 15, Uln: 21. Strength: UE MMT: Shoulder: Ext: R 5/5, L 5/5, Flex: R 5/5, L 5/5, Abd: R 4-/5, L 5/5, ER: R 4+/5, L 5/5, IR: R 4/5, L 5/5. Elbow: Flexion: R 5/5, L 5/5, Ext: R 4/5, L 5/5. LE MMT: Hip: Flexion: R 4-/5, L 4/5, Ext: R 4+/5, L 4/5, Add: B 4+/5, Abd: R 4/5, L 4+/5. Knee: Ext: R 4+/5, L 5/5, Flex: R 4/5, L 4+/5. Ankle: DF: R 5-/5, L 5/5, PF R 3+/5, L 5/5. Outcome Measure: Stroke Impact Scale (SIS) sections 1, 5, 6 total score: 87/115. If you have any questions or concerns, please feel free to contact me at [phone]. Thank you, Josselin Monte, PT, DPT, CLT MTDD
--- NOTE | 2018-07-28 08:57 | PT PLAN OF CARE ---
Physician: Frederick Duran MD Patient is being seen: 3x/Week Therapist: Josselin Monte, PT, DPT, CLT Medical Diagnosis: Post CVA Treatment Diagnosis: L Side CVA, Generalized Weakness, Abnormality of Gait Date of Onset: 06/14/17 Date of Initial Evaluation: 11/28/17 Date patient was last seen: 07/24/18 Number of treatments: 92 Number of cancellations/No shows: 2 INTERVENTIONS: Manual Therapy/STM/MET Strengthening/condition Ice/Heat Range of Motion Spinal Stabilization Ultrasound Stretching Iontophoresis Neuromuscular Re-ed Closed Chain Program Electrical Stim Posture/Body mechanics Gait Trg/Balance Trg Biofeedback Home Exercise Program Mech./Manual Traction Therapeutic Activities Pelvic Floor GOALS: In 3 weeks pt will improve SIS coupled score of sections 1, 5 and 6 to > 70/115 for improved function with ADL's. MET In 6 weeks pt will improve R LE strength to >4/5 for improved function with ADL's and functional mobility. MET In 6 weeks pt will improve R UE strength to >3/5 for improved function with ADL's. MET In 6 weeks pt will improve SIS coupled score of sections 1, 5 and 6 to > 93/115 for improved function with ADL's. PATIENT'S GOAL: Improve functional mobility and strength Status of Patient's Goals: 3/4 MET, 1/4 In progress Patient Compliance: Fair Prognosis: Good Reasons for continuing therapy: Bryan shows improvement with correction via taping and strengthening for R foot inversion with improved overall ankle strength and mobility. Coordination continues to show progress with improved strength and stability with dynamic activities. Pt UE strength shows good progress with no longer any shoulder pain and good scapulohumeral rhythm with motions. Pt is able to function outside of synergies with moderate strength and only occasional cuing. Lingering deficits remain with eccentric loading of the R quad going down stairs, and normalization of gait without AD. At this time pt remains to use SPC for ambulation at home but otherwise no braces or AFO's. Further PT to continue with gait gains in foot clearance, toe push off, equal stride length and trunk stability as well as ambulation down stairs without use of handrail. Posture: Pt presents with B rounded forward shoulders. ROM: UE AROM: Shoulder: Flexion: R 110, L 130, Abd: R 115, L 160, ER: R 65, L 73, IR: R L5, L T12. Elbow: Flexion: B WFL, Ext: R 0, L 0. Wrist R side only: Ext: 20, Flex: 68, Rad: 15, Uln: 21. Strength: UE MMT: Shoulder: Ext: R 5/5, L 5/5, Flex: R 5/5, L 5/5, Abd: R 4-/5, L 5/5, ER: R 4+/5, L 5/5, IR: R 4/5, L 5/5. Elbow: Flexion: R 5/5, L 5/5, Ext: R 4/5, L 5/5. LE MMT: Hip: Flexion: R 4-/5, L 4/5, Ext: R 4+/5, L 4/5, Add: B 4+/5, Abd: R 4/5, L 4+/5. Knee: Ext: R 4+/5, L 5/5, Flex: R 4/5, L 4+/5. Ankle: DF: R 5-/5, L 5/5, PF R 4-/5, L 5/5. Outcome Measure: Stroke Impact Scale (SIS) sections 1, 5, 6 total score: 87/115. If you have any questions or concerns, please feel free to contact me at [phone]. Thank you, Josselin Monte, PT, DPT, CLT SHARYN
--- NOTE | 2018-07-29 11:19 | SLP PLAN OF CARE ---
SPEECH PATHOLOGY 10th Visit REPORT Patient Name: Bryan Thakur Patient : 1945 Physician: Frederick Duran MD Clinician: Vicenta Livingston M.S., CCC-ENGINEER EXHAUSTER Treatment Dx: Moderately Severe Aphasia with Apraxia Date of Report: 07/24/18 The patient attends ma regularly 3x/wk. He lives with his ex- who brings him to therapy, assists with ADLs, IADLs, including driving. He is consistent with wearing oxygen and is typically using 1 to 1.5 liters via nasal cannula. He uses backpack portable oxygen tank. He uses a cane or walker during ambulation intermittently. The patient has been progressing well with interventions. SGD supported communication is very successful for this patient. He requires encouragement to use the device in part because he is often unaware that what he is saying verbally is unintelligible. UPDATED PLAN OF CARE 1. Pt will respond to yes/no questions at 90% to increase receptive language skills for functional communication and IADLs. Progressing. 2. Pt will perform tasks related to time and planning with 90% accuracy using external supports and mod assist. Progressing 3. Pt will perform tasks of functional verbal expression with min assist and 90% accuracy. Progressing 4. Pt will participate in SGD trials to ultimately select most functions SGD. Caregiver and pt will receive training for operation and functional use of SGD. Goal Met, DC Goal: A Lingraphica MiniTalk SGD was received at [facility] and transferred to the patient on approximately 06-30-18. He and caregiver receive ongoing training. RECOMMENDATION Continue ST 3wk12 to address updated POC Thank you for referring this patient [place] [facility] [place] [place]- [facility] [place]. Please call [phone] to contact the ENGINEER EXHAUSTER. Respectfully, Vicenta Livingston M.S., CCC-ENGINEER EXHAUSTER Physician Signature Date MTDD
--- NOTE | 2018-08-22 17:33 | PT PLAN OF CARE ---
Physician: Frederick Duran MD Patient is being seen: 3x/Week Therapist: Josselin Monte, PT, DPT, CLT Medical Diagnosis: Post CVA Treatment Diagnosis: L Side CVA, Generalized Weakness, Abnormality of Gait Date of Onset: 06/14/17 Date of Initial Evaluation: 11/28/17 Date patient was last seen: 08/21/18 Number of treatments: 102 Number of cancellations/No shows: 2 INTERVENTIONS: Manual Therapy/STM/MET Strengthening/condition Ice/Heat Range of Motion Spinal Stabilization Ultrasound Stretching Iontophoresis Neuromuscular Re-ed Closed Chain Program Electrical Stim Posture/Body mechanics Gait Trg/Balance Trg Biofeedback Home Exercise Program Mech./Manual Traction Therapeutic Activities Pelvic Floor GOALS: In 3 weeks pt will improve SIS coupled score of sections 1, 5 and 6 to > 70/115 for improved function with ADL's. MET In 6 weeks pt will improve R LE strength to >4/5 for improved function with ADL's and functional mobility. MET In 6 weeks pt will improve R UE strength to >3/5 for improved function with ADL's. MET In 6 weeks pt will improve SIS coupled score of sections 1, 5 and 6 to > 93/115 for improved function with ADL's. PATIENT'S GOAL: Improve functional mobility and strength Status of Patient's Goals: 3/4 MET, 1/4 In progress Patient Compliance: Fair Prognosis: Good Reasons for continuing therapy: Bryan continues to show good improvement of gait mechanics with minimal deviations from normal gait pattern if pt is focused on movement. With distractions pt remains to have occasional R foot decreased clearance as well as occasional trunk sway. Eccentric control of the R quad shows improvement as does single leg balance. Further PT to continue with progression towards community ambulation and mobility for decreased fall risk with ADL's. Posture: Pt presents with B rounded forward shoulders. ROM: UE AROM: Shoulder: Flexion: R 115, L 130, Abd: R 115, L 160, ER: R 67, L 73, IR: R L5, L T12. Elbow: Flexion: B WFL, Ext: R 0, L 0. Wrist R side only: Ext: 20, Flex: 68, Rad: 15, Uln: 21. Strength: UE MMT: Shoulder: Ext: R 5/5, L 5/5, Flex: R 5/5, L 5/5, Abd: R 4-/5, L 5/5, ER: R 4+/5, L 5/5, IR: R 4/5, L 5/5. Elbow: Flexion: R 5/5, L 5/5, Ext: R 4/5, L 5/5. LE MMT: Hip: Flexion: R 4+/5, L 4+/5, Ext: R 4+/5, L 4/5, Add: B 4+/5, Abd: R 4/5, L 4+/5. Knee: Ext: R 4+/5, L 5/5, Flex: R 4/5, L 4+/5. Ankle: DF: R 5-/5, L 5/5, PF R 4-/5, L 5/5. Outcome Measure: Stroke Impact Scale (SIS) sections 1, 5, 6 total score: 87/115. Gait: Pt is able to ambulate 1 lap around the track without AD support with only 3 instances of R foot decreased clearance and no rest breaks. If you have any questions or concerns, please feel free to contact me at [phone]. Thank you, Josselin Monte, PT, DPT, CLT SHARYN
== END 2018-08-31 ==
LOC: PT 13:00
PROVIDERS: ATTEND Family Medicine
DX: Z48.811 Encounter for surgical aftercare following surgery on the nervous system (principal); I69.30 Unspecified sequelae of cerebral infarction; M62.81 Muscle weakness (generalized); R26.89 Other abnormalities of gait and mobility

== ENCOUNTER 2018-09-01 13:20 | Outpatient (RCR) | payer MEDICARE, OTHER | END 2018-09-01 13:21 | disposition home or self-care (01) | LOC: PT 13:20 | PROVIDERS: ATTEND Family Medicine | DX: Z48.811 Encounter for surgical aftercare following surgery on the nervous system (principal); I69.30 Unspecified sequelae of cerebral infarction; M62.81 Muscle weakness (generalized); R26.89 Other abnormalities of gait and mobility ==

== ENCOUNTER 2018-11-27 13:00 | Outpatient (RCR) | payer MEDICARE, OTHER ==
--- NOTE | 2018-09-01 16:05 | PT PLAN OF CARE ---
Physician: Frederick Duran MD Patient is being seen: 3x/Week Therapist: Josselin Monte, PT, DPT, CLT Medical Diagnosis: Post CVA Treatment Diagnosis: L Side CVA, Generalized Weakness, Abnormality of Gait Date of Onset: 06/14/17 Date of Initial Evaluation: 11/28/17 Revaluation Date: 09/01/18 Date patient was last seen: 09/01/18 Number of treatments: 1 Number of cancellations/No shows: 0 INTERVENTIONS: Manual Therapy/STM/MET Strengthening/condition Ice/Heat Range of Motion Spinal Stabilization Ultrasound Stretching Iontophoresis Neuromuscular Re-ed Closed Chain Program Electrical Stim Posture/Body mechanics Gait Trg/Balance Trg Biofeedback Home Exercise Program Mech./Manual Traction Therapeutic Activities Pelvic Floor GOALS: Previous Goals: In 3 weeks pt will improve SIS coupled score of sections 1, 5 and 6 to > 70/115 for improved function with ADL's. MET In 6 weeks pt will improve R LE strength to >4/5 for improved function with ADL's and functional mobility. MET In 6 weeks pt will improve R UE strength to >3/5 for improved function with ADL's. MET In 6 weeks pt will improve SIS coupled score of sections 1, 5 and 6 to > 93/115 for improved function with ADL's. New Goals: In 2 MO pt will improve CB&M Score to 56.5 for improved ambulation and decreased fall risk with ADL's. In 2 MO pt will be able to walk 3 laps around the track with good gait mechanics and no AD for community distance ambulation. In 2 MO pt will improve 4 stage balance test to SLS >10 seconds for decreased fall risk and improved weight shift onto paretic side for performance of ADL's. PATIENT'S GOAL: Improve functional mobility and strength Status of Patient's Goals: 3/7 MET, 4/7 In progress Patient Compliance: Fair Prognosis: Good Reasons for continuing therapy: Bryan was re-evaluated today secondary to prolonged attendance of physical therapy. Pt previously showed plateau with Stroke Impact Scale (SIS) testing with progression of function and household limitations to performance. Instead re-evaluation consisted of pt performance of physical rather than objective outcome measures specifically the Community Balance and Mobility Scale (CB&M) for progression towards independent functional community mobility without AD. At this time Bryan is using his SPC 75% of the time with ADL's with improved gait mechanics. Pt is still quick to fatigue with occasional decreased foot clearance on the R LE as well as increased trunk sway. Pt shows good progress with stair ambulation with ability to perform stair climbing with good form and is able to go down stairs without UE support as long as cuing on knee alignment is provided. Further PT is indicated for Bryan to improve pt stability with ADL's and ambulation as well as decrease fall risk. Posture: Pt presents with B rounded forward shoulders. ROM: UE AROM: Shoulder: Flexion: R 115, L 130, Abd: R 115, L 160, ER: R 67, L 73, IR: R L5, L T12. Elbow: Flexion: B WFL, Ext: R 0, L 0. Wrist R side only: Ext: 20, Flex: 68, Rad: 15, Uln: 21. Strength: UE MMT: Shoulder: Ext: R 5/5, L 5/5, Flex: R 5/5, L 5/5, Abd: R 4-/5, L 5/5, ER: R 4+/5, L 5/5, IR: R 4/5, L 5/5. Elbow: Flexion: R 5/5, L 5/5, Ext: R 4/5, L 5/5. LE MMT: Hip: Flexion: R 4+/5, L 4+/5, Ext: R 4+/5, L 4/5, Add: B 4+/5, Abd: R 4/5, L 4+/5. Knee: Ext: R 4+/5, L 5/5, Flex: R 4/5, L 4+/5. Ankle: DF: R 5-/5, L 5/5, PF R 4-/5, L 5/5. Outcome Measure: Stroke Impact Scale (SIS) sections 1, 5, 6 total score: 87/115. Community Balance and Mobility Scale (CB&M): 48.5/96 Gait: Pt is able to ambulate 1 lap around the track without AD support with only 3 instances of R foot decreased clearance and no rest breaks. Balance: 4 Stage Balance: Tandem: SLS: L 30 seconds, R 6 seconds If you have any questions or concerns, please feel free to contact me at [phone]. Thank Josselin rubio, PT, DPT, CLT Referring Provider Signature: Date: MTDD
--- NOTE | 2018-09-02 14:17 | SLP EVALUATION SUMMARY REPORT ---
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 The patient has been attending ST services at [facility] since November of 2017. A re- evaluation was completed with new physician orders due to length of time elapsed following initial encounter. The patient resides with his ex- who provides support for management of IADLs and transportation to ST appointments. The patient has been progressing well with interventions, and has significantly benefitted from use of SGD (speech generating device) to support communication. APHASIA The Quick Assessment for Aphasia was administered with the following results: -Domains Demonstrating Deficits: following multi-level auditory commands, following written instructions, responding to complex Y/N questions, describing common objects, writing sentences, writing to dictation, and phrase repetition Reading comprehension at the word and phrase level, repeating phrases, writing phrases, mathematics, concepts of time -Domains Demonstrating Strength: following single-level auditory commands, identifying objects and body parts, responding to simple Y/N questions, matching printed words, copying printed words, reading single words aloud, sentence completion, word repetition - Verbal paraphasias, literal paraphasias, perseverations, and jargon all observed The Manley Naming Test, short form, was administered with the following results: 5/15 pictures named correctly Response accuracy improved to 12/15 with access to written stimulus cues in a field of 4 Perseveration on prior stimuli present during 8/15 attempts, with self- correction on 1/8 perseverations Paraphasias (both literal and semantic) present during 6/15 attempts APRAXIA The Quick Assessment for Apraxia of Speech was administered with the following results: -Oral Apraxia- Mild: Pt produced 6/10 oral movements independently, increasing to 10/10 with visual model or multiple, cued attempts. -Apraxia of Speech- Mild to moderate: Pt struggled to produce vowels and consonants in isolation, but independently produced diphthongs, 1-, 2-, and 3- syllable words. Pt also demonstrated difficulty with production of phrases, serial / automatic speech tasks, and word groups with progressive complexity (e.g., [id number]). Errors characterized by consonant substitutions, incorrect word production, and perseverations on prior stimuli. Pt exhibited visible struggle and frustration with high awareness of errors. Frequent breaks were provided throughout assessment. VOICE: Patient demonstrates some strain and breathiness. No changes since initial assessment. DYSPHAGIA: Patient denies oral, pharyngeal, and esophageal dysphagia symptoms at this time. Screened with water; no deficits observed. SUMMARY The patient exhibits moderate aphasia with mild to moderate apraxia of speech. Expressive language is fluent, but with deficits characterized by anomia, vague and often disorganized output, paraphasic errors, and frequent verbal perseverations. Expressive language deficits are exacerbated by apraxia of speech, with consonant substitutions and difficulty sequencing motor movements for complex or multi-syllabic words. Automatic speech/language is a relative area of strength. Receptively, the patient exhibits difficulty comprehending both auditory and written information. He experiences success with simplified language, reduced speaking rate, and pointing to responses (e.,g., yes/no icons). Although deficits persist, improvements have been noted across domains, including receptive language, expressive language, and motor speech production. The patient has also benefitted from implementation of a speech generating device with improved effectiveness of expressive communication. The patient should continue to make great progress with his updated plan of care. RECOMMENDATIONS 1.ST 3x/12wk PROGNOSIS: Good. Pt maintains strong family support and motivation to participate. PLAN OF CARE Short Term Goals 1. Pt will perform tasks of functional verbal expression with min assist and 90% accuracy. 2. Pt will respond to yes/no questions at 90% to increase receptive language skills for functional communication and IADLs. 3. Pt will independently articulate target utterance (5-6 words in length) after receiving integral stimulation (watch me, listen to me) with 90% accuracy. Long-Term Goals 1. The patient will demonstrate functional cognitive communication for safe participation with heightened independence in the home and community. Thank you for this referral. Please call [phone] Lizzy Brady M.S., CCC-COMPENSATION SUPERVISOR [*] Physician Signature MTDD
--- NOTE | 2018-09-23 12:35 | SLP PLAN OF CARE ---
SPEECH LANGUAGE PATHOLOGY RE-EVALUATION REPORT Patient Name: Bryan Thakur Patient : 1945 Date of Evaluation: 09-23-18 Physician: Frederick Duran M.D. 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 The patient has been attending ST services at [facility] since November of 2017. He attends 3xwk and is brought to all appointments by his ex- (Yumiko) with whom he lives. Yumiko provides additional support of the patient by completing other IADLs including cooking and meds management. CURRENT POC Short Term Goals 1. Pt will perform tasks of functional verbal expression with min assist and 90% accuracy. Progressing: Pt currently producing average of 4word phrases following direct model at 80% acc and mod assist ( repetition of model as required) . Pt provides functional information regarding personal biography and family relationships using SGD supported communication. Pt achieves approximately 90% success with min cues to support device navigation, clarification of communicative intent, and recovery from perseverative episodes. 2. Pt will respond to yes/no questions at 90% to increase receptive language skills for functional communication and IADLs. Progressing: significant progress is made toward this goal. The patients success with increasingly long/complex questions is demonstrated. One sentence statements followed by a directly related questions answered at 88%. When initial statement increased to 2 sentences followed by a questions, pt acc. decreases to 70%. Patient is responsive to clinician providing verbal/visual cues as well as verbal explanation/description of correct vs errored response. Pt demonstrates awareness of errors following clinician assist with verbal/visual cues as well as verbal demonstration/explanation of correct vs errored responses. 3. Pt will independently articulate target utterance (5-6 words in length) after receiving integral stimulation (watch me, listen to me) with 90% accuracy. Progressing: Pt currently articulates short sentences (4-5 words) averaging 90% following immediate model. Delayed (approx 3sec) production of the same sentence results in approximately 85% accuracy without a direct model. Patient is responsive to CROWN AND BRIDGE TECHNICIAN provided assist to resolve perseverations and apraxic errors, including oral placement and phonemic cues. Long-Term Goals 1. The patient will demonstrate functional cognitive communication for safe participation with heightened independence in the home and community. SUMMARY Improvements are demonstrated with progression toward goals including with receptive language, expressive language, and motor speech production. The patient benefits from use of his speech generating device. He reports daily use is typical outside of tx. His independence with initiation and functional use of the SGD shows continuing progression significantly improving expressive communication. The patient is expected to continue to progress with skilled speech therapy services. RECOMMENDATIONS Continue current Plan of Care. The patient shows progress with current POC at 3x/12wk. It is recommended he continue with this schedule to achieve medically necessary progress toward functional cognitive-communication. Thank you for this referral. Please call [phone] Vicenta Livingston M.S., CCC-[employer] AND BR[employer]GE TECHNICIAN Physician Signature SHARYN
--- NOTE | 2018-09-24 07:16 | PT PLAN OF CARE ---
Physician: Frederick Duran MD Patient is being seen: 3x/Week Therapist: Josselin Monte, PT, DPT, CLT Medical Diagnosis: Post CVA Treatment Diagnosis: L Side CVA, Generalized Weakness, Abnormality of Gait Date of Onset: 06/14/17 Date of Initial Evaluation: 11/28/17 Revaluation Date: 09/01/18 Date patient was last seen: 09/22/18 Number of treatments: 10 Number of cancellations/No shows: 0 INTERVENTIONS: Manual Therapy/STM/MET Strengthening/condition Ice/Heat Range of Motion Spinal Stabilization Ultrasound Stretching Iontophoresis Neuromuscular Re-ed Closed Chain Program Electrical Stim Posture/Body mechanics Gait Trg/Balance Trg Biofeedback Home Exercise Program Mech./Manual Traction Therapeutic Activities Pelvic Floor GOALS: Previous Goals: In 3 weeks pt will improve SIS coupled score of sections 1, 5 and 6 to > 70/115 for improved function with ADL's. MET In 6 weeks pt will improve R LE strength to >4/5 for improved function with ADL's and functional mobility. MET In 6 weeks pt will improve R UE strength to >3/5 for improved function with ADL's. MET In 6 weeks pt will improve SIS coupled score of sections 1, 5 and 6 to > 93/115 for improved function with ADL's. New Goals: In 2 MO pt will improve CB&M Score to 56.5 for improved ambulation and decreased fall risk with ADL's. In 2 MO pt will be able to walk 3 laps around the track with good gait mechanics and no AD for community distance ambulation. In 2 MO pt will improve 4 stage balance test to SLS >10 seconds for decreased fall risk and improved weight shift onto paretic side for performance of ADL's. PATIENT'S GOAL: Improve functional mobility and strength Status of Patient's Goals: 3/7 MET, 4/7 In progress Patient Compliance: Fair Prognosis: Good Reasons for continuing therapy: Bryan at this time shows slight decline in UE strength and ROM following discharge from OT and PT focus on community ambulation. While functional movements below 90 degrees has improved, ROM of the L shoulder has declined with a decline in overall strength. Further PT to extend Bryan's sessions to address UE strength and mobility to a higher level than currently being performed. Despite decline in UE function, pt shows excellent progress in the LE strength and mobility and is able to ambulate stairs with little correction and no LOB as well as walk fairly consistently without AD without foot catch. With continued progress it is likely that pt will be able to perform community ambulation without AD. Posture: Pt presents with B rounded forward shoulders. ROM: UE AROM: Shoulder: Flexion: R 115, L 130, Abd: R 115, L 160, ER: R 67, L 73, IR: R L5, L T12. Elbow: Flexion: B WFL, Ext: R 0, L 0. Wrist R side only: Ext: 20, Flex: 68, Rad: 15, Uln: 21. Strength: UE MMT: Shoulder: Ext: R 5/5, L 4/5, Flex: R 5/5, L 5/5, Abd: R 4-/5, L 5/5, ER: R 4+/5, L 4-/5, IR: R 4-/5, L 5/5. Elbow: Flexion: R 5/5, L 5/5, Ext: R 4/5, L 5/5. LE MMT: Hip: Flexion: R 5/5, L 4+/5, Ext: R 4+/5, L 5/5, Add: B 5/5, Abd: R 4/5, L 4+/5. Knee: Ext: R 5/5, L 5/5, Flex: R 4+/5, L 4+/5. Ankle: DF: R 5-/5, L 5/5, PF R 4-/5, L 5/5. Outcome Measure: Stroke Impact Scale (SIS) sections 1, 5, 6 total score: 87/115. Community Balance and Mobility Scale (CB&M): 48.5/96 Gait: Pt is able to ambulate 1 lap around the track without AD support with only 3 instances of R foot decreased clearance and no rest breaks. Balance: 4 Stage Balance: Tandem: SLS: L 30 seconds, R 6 seconds If you have any questions or concerns, please feel free to contact me at [phone]. Thank you, Josselin Monte, PT, DPT, CLT Referring Provider Signature: Date: MTDD
--- NOTE | 2018-10-16 07:29 | PT PLAN OF CARE ---
Physician: Frederick Duran MD Patient is being seen: 3x/Week Therapist: Josselin Monte, PT, DPT, CLT Medical Diagnosis: Post CVA Treatment Diagnosis: L Side CVA, Generalized Weakness, Abnormality of Gait Date of Onset: 06/14/17 Date of Initial Evaluation: 11/28/17 Revaluation Date: 09/01/18 Date patient was last seen: 10/15/18 Number of treatments: 20 Number of cancellations/No shows: 0 INTERVENTIONS: Manual Therapy/STM/MET Strengthening/condition Ice/Heat Range of Motion Spinal Stabilization Ultrasound Stretching Iontophoresis Neuromuscular Re-ed Closed Chain Program Electrical Stim Posture/Body mechanics Gait Trg/Balance Trg Biofeedback Home Exercise Program Mech./Manual Traction Therapeutic Activities Pelvic Floor GOALS: Previous Goals: In 3 weeks pt will improve SIS coupled score of sections 1, 5 and 6 to > 70/115 for improved function with ADL's. MET In 6 weeks pt will improve R LE strength to >4/5 for improved function with ADL's and functional mobility. MET In 6 weeks pt will improve R UE strength to >3/5 for improved function with ADL's. MET In 6 weeks pt will improve SIS coupled score of sections 1, 5 and 6 to > 93/115 for improved function with ADL's. New Goals: In 2 MO pt will improve CB&M Score to 56.5 for improved ambulation and decreased fall risk with ADL's. MET In 2 MO pt will be able to walk 3 laps around the track with good gait mechanics and no AD for community distance ambulation. In 2 MO pt will improve 4 stage balance test to SLS >10 seconds for decreased fall risk and improved weight shift onto paretic side for performance of ADL's. PATIENT'S GOAL: Improve functional mobility and strength Status of Patient's Goals: 4/7 MET, 3/7 In progress Patient Compliance: Fair Prognosis: Good Reasons for continuing therapy: Bryan showed significant progress with the testing of the Community Balance and Mobility with improvement in coordination and balance with ambulatory tasks. Pt remains to have tone in R LE resulting in inversion and occasional spasticity with high speed tasks. Further PT to continue with progression on gait mechanics transitioning towards ambulation without AD as well as safety in community mobility. Pt at this time has been referred to an orthopaedic specialist for evaluation of frequent R shoulder subluxation. Additionally PT sessions to be extended to 1 hour instead of 45 minutes to improve UE function and mobility with scapular strengthening and RTC strengthening for stability. Posture: Pt presents with B rounded forward shoulders. ROM: UE AROM: Shoulder: Flexion: R 115, L 130, Abd: R 115, L 160, ER: R 67, L 73, IR: R L5, L T12. Elbow: Flexion: B WFL, Ext: R 0, L 0. Wrist R side only: Ext: 20, Flex: 68, Rad: 15, Uln: 21. Strength: UE MMT: Shoulder: Ext: R 5/5, L 4/5, Flex: R 5/5, L 5/5, Abd: R 4-/5, L 5/5, ER: R 4+/5, L 4-/5, IR: R 4-/5, L 5/5. Elbow: Flexion: R 5/5, L 5/5, Ext: R 4/5, L 5/5. LE MMT: Hip: Flexion: R 5/5, L 4+/5, Ext: R 4+/5, L 5/5, Add: B 5/5, Abd: R 4/5, L 4+/5. Knee: Ext: R 5/5, L 5/5, Flex: R 4+/5, L 4+/5. Ankle: DF: R 5-/5, L 5/5, PF R 4-/5, L 5/5. Outcome Measure: Stroke Impact Scale (SIS) sections 1, 5, 6 total score: 87/115. Community Balance and Mobility Scale (CB&M): 62/96 Gait: Pt is able to ambulate 1 lap around the track without AD support with only 3 instances of R foot decreased clearance and no rest breaks. Balance: 4 Stage Balance: Tandem: SLS: L 45 seconds, R 7 seconds If you have any questions or concerns, please feel free to contact me at [phone]. Thank you, Josselin Monte, PT, DPT, CLT Referring Provider Signature: Date: MTDD
--- NOTE | 2018-10-17 12:59 | SLP PLAN OF CARE ---
SPEECH LANGUAGE PATHOLOGY RE-EVALUATION REPORT Patient Name: Bryan Thakur Patient : 1945 Date of Evaluation: 10-16-18 Physician: Frederick Duran M.D. 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 The patient has been attending ST services at [facility] since November of 2017. He attends 3xwk and is brought to all appointments by his ex- (Yumiko) with whom he lives. Yumiko provides additional support of the patient by completing other IADLs including cooking and meds management. CURRENT POC Short Term Goals 1. Pt will perform tasks of functional verbal expression with min assist and 90% accuracy. Progressing: Pt provides functional information regarding personal biography and family relationships using SGD supported communication and gestures. Pt achieves approximately 90% success with max graded to min cues to support device navigation, clarification of communicative intent, and recovery from perseverative episodes. Pt benefits from supported communication techniques where ST writes or repeats pt utterances to help clarify narratives and include more relevant details. 2. Pt will respond to yes/no questions at 90% to increase receptive language skills for functional communication and IADLs. Progressing: The patients success with increasingly long/complex questions is demonstrated. Pt answers simple yes/no questions with 88% accuracy. When asked comparative yes/no questions, patient responds with 70% accuracy. Patient is responsive to clinician providing verbal and visual cues as well as verbal explanation of correct vs errored response. Pt demonstrates awareness of errors following clinician assist with verbal/visual cues as well as verbal demonstration/explanation of correct vs errored responses. 3. Pt will independently articulate target utterance (5-6 words in length) after receiving integral stimulation (watch me, listen to me) with 90% accuracy. Progressing: Pt currently articulates short sentences (4-6 words) averaging 85% following immediate model/integral stimulation. Delayed (approx 5 sec) production of the same sentence results in approximately 95% accuracy. Patient is responsive to GOLD NIB GRINDER provided assist to resolve perseverations and apraxic errors, including oral placement, phonemic cues, and short breaks to help reset after a perseverative occurrence. Long-Term Goals 1. The patient will demonstrate functional cognitive communication for safe participation with heightened independence in the home and community. SUMMARY Improvements are demonstrated with progression toward goals including receptive language, expressive language, and motor speech production. The patient benefits from use of his speech generating device and supported communication techniques. His independence with initiation and functional use of the SGD shows continuing progression toward significantly improving expressive communication. He reports daily use is typical outside of tx. While compared to previous progress notes, the accuracy percentages have slightly decreased, this is likely due to the increased complexity of the tasks completed during treatment. The patient is expected to continue to progress with skilled speech therapy services. RECOMMENDATIONS Continue current Plan of Care. The patient shows progress with current POC at 3x/12wk. It is recommended he continue with this schedule to achieve medically necessary progress toward functional cognitive-communication. Thank you for this referral. Please call [phone] Vicenta Livingston M.S., CCC-GOLD NIB GRINDER Physician Signature MTDD
--- NOTE | 2018-11-06 15:22 | PT PLAN OF CARE ---
Physician: Frederick Duran MD Patient is being seen: 3x/Week Therapist: Josselin Monte, PT, DPT, CLT Medical Diagnosis: Post CVA Treatment Diagnosis: L Side CVA, Generalized Weakness, Abnormality of Gait Date of Onset: 06/14/17 Date of Initial Evaluation: 11/28/17 Revaluation Date: 09/01/18 Date patient was last seen: 11/06/18 Number of treatments: 30 Number of cancellations/No shows: 0 INTERVENTIONS: Manual Therapy/STM/MET Strengthening/condition Ice/Heat Range of Motion Spinal Stabilization Ultrasound Stretching Iontophoresis Neuromuscular Re-ed Closed Chain Program Electrical Stim Posture/Body mechanics Gait Trg/Balance Trg Biofeedback Home Exercise Program Mech./Manual Traction Therapeutic Activities Pelvic Floor GOALS: Previous Goals: In 3 weeks pt will improve SIS coupled score of sections 1, 5 and 6 to > 70/115 for improved function with ADL's. MET In 6 weeks pt will improve R LE strength to >4/5 for improved function with ADL's and functional mobility. MET In 6 weeks pt will improve R UE strength to >3/5 for improved function with ADL's. MET In 6 weeks pt will improve SIS coupled score of sections 1, 5 and 6 to > 93/115 for improved function with ADL's. New Goals: In 2 MO pt will improve CB&M Score to 56.5 for improved ambulation and decreased fall risk with ADL's. MET In 2 MO pt will be able to walk 3 laps around the track with good gait mechanics and no AD for community distance ambulation. In 2 MO pt will improve 4 stage balance test to SLS >10 seconds for decreased fall risk and improved weight shift onto paretic side for performance of ADL's. PATIENT'S GOAL: Improve functional mobility and strength Status of Patient's Goals: 4/7 MET, 3/7 In progress Patient Compliance: Fair Prognosis: Good Reasons for continuing therapy: Bryan shows gradual improvement with lengthened PT sessions to improve progress on shoulder function. AROM shows improvements with decreased pain with movement. Pt remains to have anterior translation of the GH joint with abduction planes but is able to perform more prior to onset of pain. RTC strength shows improvements with near full motion B. Gait shows progressive improvements with use of walking sticks for community ambulation resulting in increased arm swing and more equal stride length and stance phase. Further PT to continue to improve functional use of R UE as well as community ambulation and strength. Posture: Pt presents with B rounded forward shoulders. ROM: UE AROM: Shoulder: Flexion: R 130, L 150, Abd: R 124, L 160, ER: R 70, L 73, IR: R L2, L T12. Elbow: Flexion: B WFL, Ext: R 0, L 0. Wrist R side only: Ext: 20, Flex: 68, Rad: 15, Uln: 21. Strength: UE MMT: Shoulder: Ext: R 5/5, L 4+/5, Flex: R 5/5, L 5/5, Abd: R 4- /5, L 5/5, ER: R 4+/5, L 4/5, IR: R 4-/5, L 5/5. Elbow: Flexion: R 5/5, L 5/5, Ext: R 4/5, L 5/5. LE MMT: Hip: Flexion: R 5/5, L 4+/5, Ext: R 4+/5, L 5/5, Add: B 5/5, Abd: R 4/5, L 4+/5. Knee: Ext: R 5/5, L 5/5, Flex: R 4+/5, L 4+/5. Ankle: DF: R 5-/5, L 5/5, PF R 4-/5, L 5/5. Outcome Measure: Stroke Impact Scale (SIS) sections 1, 5, 6 total score: 87/115. Community Balance and Mobility Scale (CB&M): 62/96 Gait: Pt is able to ambulate 2 lap around the track without AD support with only 3 instances of R foot decreased clearance and one rest breaks. Balance: 4 Stage Balance: Tandem: SLS: L 45 seconds, R 7 seconds If you have any questions or concerns, please feel free to contact me at [phone]. Thank you, Josselin Monte, PT, DPT, CLT Referring Provider Signature: Date: MTDD
--- NOTE | 2018-11-12 11:08 | SLP PLAN OF CARE ---
SPEECH LANGUAGE PATHOLOGY RE-EVALUATION REPORT Patient Name: Bryan Thakur Patient : 1945 Date of Evaluation: 11-11-18 Physician: Frederick Duran M.D. 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 The patient has been attending ST services at [facility] since November of 2017. He attends 3xwk and is brought to all appointments by his ex- (Yumiko) with whom he lives. Yumiko provides additional support of the patient by completing other IADLs including cooking and meds management. The patient recently reported interest in living alone in order to gain independence. CURRENT POC Short Term Goals 1. Patient will perform tasks of functional verbal expression with min assist and 90% accuracy. Progressing: Patient provides functional information regarding personal biography and family relationships using SGD supported communication and gestures. Patient achieves approximately 88% success with mod graded to min cues to support device navigation, clarification of communicative intent, and recovery from perseverative episodes. Patient benefits from supported communication techniques where ST repeats what the patient communicates with visual aids to help clarify narratives and include more relevant and specific details. 2. Pt will respond to yes/no questions at 90% to increase receptive language skills for functional communication and IADLs. Progressing: The patients success with increasingly long/complex questions is demonstrated. Patient answers simple yes/no questions with 84% accuracy. When asked questions about a paragraph read to him, patient independently answers y/n questions with 87% accuracy. Patient is responsive to clinician providing verbal and visual cues as well as verbal explanation of correct vs errored response. Pt demonstrates awareness of errors following clinician assist with verbal/visual cues as well as verbal demonstration/explanation of correct vs errored responses. Patient also shows more instances of self-correction independently or after a repeat of the question. 3. Patient will independently articulate target utterance (5-6 words in length) after receiving integral stimulation (watch me, listen to me) with 90% accuracy. DC GOAL; GOAL MET: Patient currently articulates short sentences (5-6 words) with 90% following immediate integral stimulation. Delayed (approx 5-15 sec) production of the same sentence results in 100% accuracy. Difficulty has been increased to target sentences of 5-8 words. Patient is responsive to ACCOUNTING SPECIALIST provided assist to resolve perseverations and apraxic errors, including oral placement, phonemic cues, and short breaks to help reset after a perseverative occurrence. Integral stimulation is increased with the longer targets due to increased perseverative episodes, but once perseveration is over, the patient is able to accurately articulate the sentences after a 5-10 second delay. Long-Term Goals 1. The patient will demonstrate functional cognitive communication for safe participation with heightened independence in the home and community. SUMMARY Improvements are demonstrated with progression toward goals including receptive language, expressive language, and motor speech production. The patient benefits from use of his speech generating device and supported communication techniques. His independence with initiation and functional use of the SGD shows continuing progression toward significantly improving expressive communication. He reports daily use is typical outside of tx. While compared to previous progress notes, the accuracy percentages have slightly decreased, this is likely due to the increased complexity of the tasks completed during treatment. The patient is expected to continue to progress with skilled speech therapy services. RECOMMENDATIONS Continue STG 1 and 2, increase difficulty with STG 3, and add a goal. The patient shows progress with current POC at 3x/12wk. It is recommended he continue with this schedule to achieve medically necessary progress toward functional cognitive-communication. STG 3. Patient will independently articulate target utterance (6-9 words in length) after receiving integral stimulation (watch me, listen to me) with 90% accuracy after a 15 second delay. 4. The patient will execute multi-level instructions during periods of divided/alternating attention for safe participation in IADL tasks during 80% of opportunities w/ mod verbal/visual cues. Thank you for this referral. Please call [phone] Vicenta Livingston M.S., CCC-ACCOUNTING SPECIALIST MTDD
== END 2018-11-30 ==
LOC: PT 13:00
PROVIDERS: ATTEND Family Medicine
DX: I69.30 Unspecified sequelae of cerebral infarction (principal); M62.81 Muscle weakness (generalized); R26.89 Other abnormalities of gait and mobility
CPT/HCPCS: 92523